=== PATIENT | male | born 1945 | race Caucasian/White ===

== ENCOUNTER 2017-01-17 11:42 | Inpatient (IN) | payer MEDICARE ==
[~2017-01-17] VITALS: Ht 162.6 cm; Wt 60.3 kg
[2017-01-17] MEDS ORDERED: METF500T4 PO (14:58)
[2017-01-17 15:00] VITALS: BP 166/75
[2017-01-17] MEDS ORDERED: CALCIUM CARBONATE 500 MG TAB.CHEW PO PRN (16:45)
[2017-01-17] MEDS ORDERED: KETOROLAC 15 MG/ML VIAL. IV PRN (16:45)
[2017-01-17] MEDS ORDERED: MAG HYDROX/ALUMINUM HYD/SIMETH 30 ML ORAL.SUSP PO PRN (16:45)
[2017-01-17] MEDS ORDERED: oxyCODONE IR 5 MG TABLET PO PRN (16:45)
[2017-01-17] MEDS ORDERED: MAGNESIUM HYDROXIDE 2,400 MG/30 ML ORAL.SUSP. PO PRN (16:45)
[2017-01-17] MEDS ORDERED: ONDANSETRON PF 4 MG/2 ML VIAL. IV PRN (16:45)
[2017-01-17] MEDS ORDERED: BISACODYL 10 MG SUPP.RECT. PR PRN (16:45)
[2017-01-17] MEDS ORDERED: ACETAMINOPHEN 325 MG TABLET. PO PRN (16:45)
[2017-01-17] MEDS ORDERED: MORPHINE SULFATE 2 MG/ML DISP.SYRIN. IV PRN (16:45)
[2017-01-17] MEDS: INSULIN ASPART 300 UNITS/3 ML INSULN.PEN SQ SCH (17:00)
[2017-01-17] MEDS ORDERED: DEXTROSE 50% 25 GM / 50ML DISP.SYRIN. IV PRN (17:00)
--- NOTE | 2017-01-17 17:01 | PDOC1 ---
History and Physical Date of Admission Date of Admission DATE: 01/17/17 TIME: 16:47 Identification/Chief Complaint Chief Complaint muscle pains, transferred from [place] for muscle biopsy and experts opinion Problems: Source Source: Caregiver, Chart review, Patient History of Present Illness History of Present Illness 71 y.o male who works at [employer] (Speaks fluent hungarian), has been admitted for [place] for work up of what sounds like now needing to rule out rheumatologic condition ie polymyositis or statin induced myopathy, His past medical is onDM2 on metfromin and dyslipdiemia started on low campa statin (5 mgs) some 9-12 mos ago,. Then he started noticing leg pains/weakness, the statin was stopped. He had a mechanical fall some 1.5 weeks ago, has some minor R knee/leg abrasion but somehow ended up having to be admitted in [place] and has had a very interesting course there, Sign out c/o Dr. Ingram tel [phone] ext [phone] Lfts elevated inthe 100-300s range (has been climbing up), neg hepatitis, HIV work up, AICHA neg - 01/10 Anti smooth, anti KM neg TSH 6, T3 and T4 normal TRansferrin satn was normal (looking for hemochromatosis) LDH 1300, CPK 29,000 has been getting iVF at 200cc./hr Getting hyperchloremic so NS was shifted to LR, Serum ceruloplasmin neg US of liver was done given elevated Lfts and that was UR, Doppler liver was done to r.o Rickey alarcon that was also neg. PAst medical,. DM on OHA, dyslipdiemia,GERD,. chronic neck pain from cervical disc dse CXR L: showed RUL nodulra opacities. Followed by CT chest and seen by pulmo there, mention of ILD/ and need for OP PFT. CRea 0.6, Chloride 116 Neurology was likewise consulted, mention the need for muscle biopsy and rheum expertise hence the transfer HE described his weakness as unable to push/pull himself up after his fall and is still having difficulty doing that from a squated./seated position Past Medical History Cardiovascular: Hyperlipidemia Musculoskeletal: Osteoarthritis Endocrine: Diabetes Past Surgical History Past Surgical History: No pertinent history Family History Family History: No Significant Social History Smoke: No ALCOHOL: none Drugs: None Current Medications Current Medications Active Scripts Active Reported Metformin Hcl 500 Mg Tablet 500 Mg PO PRN Allergies Allergies: Coded Allergies: No Known Drug Allergies (Unverified , 01/17/17) ROS Review of System as per hPI, all else neg Physical Exam General: Alert, Oriented X3, Cooperative, No acute distress HEENT: Atraumatic, PERRLA Lungs: Clear to auscultation, Normal air movement Heart: S1S2, RRR, no thrills, no rubs, no gallops, no murmurs Cardiovascular: S1, S2 Breasts: Normal Abdomen: Normal bowel sounds, Soft, No tenderness, No hepatosplenomegaly, No masses Extremities: No clubbing, No cyanosis, No edema, Normal pulses, No tenderness/ swelling Skin: No rashes, No breakdown, No significant lesion Neuro: Normal gait, Normal speech, Strength at 5/5 X4 ext, Normal tone, Sensation intact, Cranial nerves 3-12 NL, Reflexes 2+ Psych/Mental Status: Mental status NL, Mood NL Vitals Vitals Vital Signs Date Time Temp Pulse Resp B/P (MAP) Pulse Ox O2 Delivery O2 Flow Rate FiO2 01/17/17 15:00 97.7 72 16 166/75 (105) 98 97.7 VTE Prophylaxis Ordered VTE Prophylaxis Devices: Yes VTE Pharmacological Prophylaxi: Yes Assessment/Plan Assessment/Plan 1. Acute to subacute muscle weakness difftls include statin myopathy, polymyositis? and similar rheum condition 2. DM 2on OHA 3. Dyslipdiemia 4. GERd 5. Eleavted Lfts (100-300s arnge) 6. Rhabdo (CPK 29K) 7. recent mechanical fall, 1.5 weeks ago 8,. Non etoh drinker 9. Elevated aldolase (108) - mild elevation 10. Subclincal hypothy - TSH marginally high 6 and T3 T4 - not enough to explain pt's remarkable labs and sxs 11. Hyperchloremia sec to NS - fast infusion x 1 week Plan: 2MN admit LR IVF Rheum and nephro consult IR consult - transferred for muscle biopsy Get rheum expertise NPO post mN incase IR biopsy Dm diet SSI PT/OT Hold statin BAsic labs - cpk richelle UA - rhabdo Other labs in chart MDM complex Dw pt ANAND VIZCARRA MD January 17, 2017 17:01
[2017-01-17] MEDS: IV RINGERS,LACTATED 1000ML 1,000 ML IV SCH (18:50)
[2017-01-17 19:00] VITALS: BP 147/69
[2017-01-17] MEDS ORDERED: SIMV10TA3 PO (20:24)
[2017-01-17 22:03] LABS: BILIRUBIN,URINE NEGATIVE (NEG); GLUCOSE,URINE NEGATIVE (NEG); NITRITE,URINE NEGATIVE (NEG); PROTEIN,URINE NEGATIVE (NEG-TRACE); UROBILINOGEN,URINE 0.2 mg/dL (0.2 mg/dL)
[2017-01-17 22:16] LABS: BACTERIA,URINE 0 /HPF (0-FEW); RBC,URINE 0 /HPF (0-2); WBC,URINE 0 /HPF (0-4)
[2017-01-17] MEDS: ZOLPIDEM 5 MG TABLET. PO PRN (22:37)
[2017-01-17 23:00] VITALS: BP 144/71
[2017-01-18] MEDS: IV RINGERS,LACTATED 1000ML 1,000 ML IV SCH ×3 (02:20→20:22)
[2017-01-18 05:34] LABS: BASO # 0.1 x10^3/uL (0.0-0.2); BASO % 1 % (0-3); EOS % 3 % (0-3); HEMATOCRIT 36.7 % (39.0-53.0); HEMOGLOBIN 12.1 g/dL (13.0-17.5); LYMPH # 1.7 x10^3/uL (1.0-4.8); LYMPH % 29 % (24-48); MEAN CORPUSCULAR HEMOGLOBIN 31 pg (25-35); MEAN CORPUSCULAR HGB CONC 33 g/dL (31-37); MEAN CORPUSCULAR VOLUME 93 fL (79-100); MONO % 9 % (0-9); NEUT % 57 % (31-73); PLATELET COUNT 214 x10^3/uL (140-400); RED BLOOD COUNT 3.94 x10^6/uL (4.30-5.70); RED CELL DISTRIBUTION WIDTH 14.1 % (11.5-14.5); WHITE BLOOD COUNT 5.7 x10^3/uL (4.0-11.0)
[2017-01-18 05:47] LABS: INR 1.1 (0.8-1.1); PROTHROMBIN TIME PATIENT 13.6 SEC (11.7-14.0)
[2017-01-18 07:13] LABS: CREATINE KINASE 12718 U/L (39-308); MYOGLOBIN 3877 ng/mL (16-96)
[2017-01-18 07:15] VITALS: BP 133/62
[2017-01-18] MEDS: INSULIN ASPART 300 UNITS/3 ML INSULN.PEN SQ SCH ×3 (08:00→17:00)
--- NOTE | 2017-01-18 10:04 | PDOC2 ---
CONSULT Date of Consult Date of Consult DATE: 01/18/17 TIME: 09:59 Reason for Consult Reason for Consult: ^ed Ck with Rhabdomyolysis vs Myositis Referring Physician Referring Physician: Dr Garcia Identification/Chief Complaint Chief Complaint muscle pain and min weakness Problems: Source Source: Chart review, Patient History of Present Illness Reason for Visit: as dictated Past Medical History Cardiovascular: Hyperlipidemia Musculoskeletal: Osteoarthritis Endocrine: Diabetes Past Surgical History Past Surgical History: No pertinent history Family History Family History: No Significant Social History No ALCOHOL: none Drugs: None Current Medications Current Medications Current Medications Ondansetron HCl (Zofran) 4 mg PRN Q6HRS PRN IV NAUSEA/VOMITING; Start 01/17/17 at 16:45 Al Hydroxide/Mg Hydroxide (Mylanta Plus Xs) 30 ml PRN Q3HRS PRN PO HEARTBURN / GAS; Start 01/17/17 at 16:45 Calcium Carbonate/ Glycine (Tums) 500 mg PRN Q3HRS PRN PO UPSET STOMACH; Start 01/17/17 at 16:45 Zolpidem Tartrate (Ambien) 5 mg PRN QHS PRN PO INSOMNIA, MAY REPEAT IN 1HR Last administered on 01/17/17t 22:37; Start 01/17/17 at 16:45 Oxycodone HCl (Roxicodone) 5 mg PRN Q3HRS PRN PO BREAKTHROUGH PAIN; Start at 16:45 Morphine Sulfate 1 mg PRN Q1HR PRN IV PAIN; Start 01/17/17 at 16:45 Ketorolac Tromethamine (Toradol) 15 mg PRN Q6HRS PRN IV PAIN; Start 01/17/17 at 16:45; Stop 01/22/17 at 16:44 Acetaminophen (Tylenol) 650 mg PRN Q6HRS PRN PO Headaches, Temp > 101.5F; Start 01/17/17 at 16:45 Magnesium Hydroxide (Milk Of Magnesia) 2,400 mg PRN Q12HR PRN PO CONSTIPATION; Start 01/17/17 at 16:45 Bisacodyl (Dulcolax Supp) 10 mg PRN DAILY PRN [place] CONSTIPATION; Start 01/17/17 at 16:45 Insulin Aspart (Novolog) 0-7 UNITS TIDWMEALS SQ ; Start 01/17/17 at 17:00 Dextrose (Dextrose 50%-Water Syringe) 12.5 gm PRN Q15MIN PRN IV SEE COMMENTS; Start 01/17/17 at 17:00 Active Scripts Active Reported Simvastatin Unknown Strength Tablet Unknown Dose PO QHS Metformin Hcl 500 Mg Tablet 500 Mg PO PRN Allergies Allergies: Coded Allergies: No Known Drug Allergies (Unverified , 01/17/17) ROS Review of System GEN: + Fevers no Chills EYES: no new Visual Complaints ENT: no EN Drainage no Hearing deficiets CVS: no Orthopnea no CP RESP: no SOB no MARINO GI: no Nausea no Vomiting : no Dysuria no Urgency HEME: no easy bruising no Palp Ly Nodes NEURO no Focal Weakness no Sz PSYCH: no Suicidal Ideation no Depression SKIN: no Rashes ENDO: no Polyuria or Polydipsia no Hot/Cold Intolerance MU SK: Ch neck Arthralgia + gen Myalgia Physical Exam Physical Exam General Appearance: Awake Alert Oriented x 3 In no Distress Eyes: VIsion Unchanged Conjunctiva Normal EN: No EN Drainage Mucous Memb. moist Neck: no JVD no JVP Supple no Thyromegaly CVS: S1 S2 no Murmur No Gallop No Rub no Edema Resp: no Rales no Rhonchi no Acc. Muscle use GI: BAS +ve NO Bruit Non Tender Non Distended : no CVA tenderness; no Suprapubic Tenderness SKIN: no Rashes Breast Exam deferred Mu.Sk: Adequate ROM no Muscle Atrophy Heme: Unable to palpate Obvious LAD no pal p Splenomegaly NEURO: Good Strength and Tone Cranial Nerves II - XII grossly intact Psych: not Depressed no Active hallucination Vital Signs Vital Signs Date Time Temp Pulse Resp B/P (MAP) Pulse Ox O2 Delivery O2 Flow Rate FiO2 01/18/17 07:15 100.4 77 18 133/62 (85) 97 Room Air 100.4 Assessment & Plan ^ed CK - pt is being evaluated for Myositis vs Rhabod - ct IVF for now to prevent DANN. Await creat (has been WNL for now ) Lo grd fever - defr to Dr jackson et timbo Labs Labs Laboratory Tests Test 01/17/17 21:06 01/17/17 21:50 01/18/17 04:55 01/18/17 08:17 Glucose (Fingerstick) 84 mg/dL (70-99) 94 mg/dL (70-99) Urine Collection Type Unknown Urine Color Yellow Urine Clarity Clear Urine pH 8.0 Urine Specific [place] 1.010 Urine Protein Negative mg/dL (NEG-TRACE) Urine Glucose (UA) Negative mg/dL (NEG) Urine Ketones (Stick) Negative mg/dL (NEG) Urine Blood Large (NEG) Urine Nitrite Negative (NEG) Urine Bilirubin Negative (NEG) Urine Urobilinogen Dipstick 0.2 mg/dL (0.2 mg/dL) Urine Leukocyte Esterase Negative (NEG) Urine RBC 0 /HPF (0-2) Urine WBC 0 /HPF (0-4) Urine Bacteria 0 /HPF (0-FEW) White Blood Count 5.7 x10^3/uL (4.0-11.0) Red Blood Count 3.94 x10^6/uL (4.30-5.70) Hemoglobin 12.1 g/dL (13.0-17.5) Hematocrit 36.7 % (39.0-53.0) Mean Corpuscular Volume 93 fL (79-100) Mean Corpuscular Hemoglobin 31 pg (25-35) Mean Corpuscular Hemoglobin Concent 33 g/dL (31-37) Red Cell Distribution Width 14.1 % (11.5-14.5) Platelet Count 214 x10^3/uL (140-400) Neutrophils (%) (Auto) 57 % (31-73) Lymphocytes (%) (Auto) 29 % (24-48) Monocytes (%) (Auto) 9 % (0-9) Eosinophils (%) (Auto) 3 % (0-3) Basophils (%) (Auto) 1 % (0-3) Neutrophils # (Auto) 3.2 x10^3uL (1.8-7.7) Lymphocytes # (Auto) 1.7 x10^3/uL (1.0-4.8) Monocytes # (Auto) 0.5 x10^3/uL (0.0-1.1) Eosinophils # (Auto) 0.2 x10^3/uL (0.0-0.7) Basophils # (Auto) 0.1 x10^3/uL (0.0-0.2) Prothrombin Time 13.6 SEC (11.7-14.0) Prothromb Time International Ratio 1.1 (0.8-1.1) Creatine Kinase 06375 U/L (39-308) Myoglobin 3877 ng/mL (16-96) Laboratory Tests Test 01/17/17 21:06 01/17/17 21:50 01/18/17 04:55 01/18/17 08:17 Glucose (Fingerstick) 84 mg/dL (70-99) 94 mg/dL (70-99) Urine Collection Type Unknown Urine Color Yellow Urine Clarity Clear Urine pH 8.0 Urine Specific [place] 1.010 Urine Protein Negative mg/dL (NEG-TRACE) Urine Glucose (UA) Negative mg/dL (NEG) Urine Ketones (Stick) Negative mg/dL (NEG) Urine Blood Large (NEG) Urine Nitrite Negative (NEG) Urine Bilirubin Negative (NEG) Urine Urobilinogen Dipstick 0.2 mg/dL (0.2 mg/dL) Urine Leukocyte Esterase Negative (NEG) Urine RBC 0 /HPF (0-2) Urine WBC 0 /HPF (0-4) Urine Bacteria 0 /HPF (0-FEW) White Blood Count 5.7 x10^3/uL (4.0-11.0) Red Blood Count 3.94 x10^6/uL (4.30-5.70) Hemoglobin 12.1 g/dL (13.0-17.5) Hematocrit 36.7 % (39.0-53.0) Mean Corpuscular Volume 93 fL (79-100) Mean Corpuscular Hemoglobin 31 pg (25-35) Mean Corpuscular Hemoglobin Concent 33 g/dL (31-37) Red Cell Distribution Width 14.1 % (11.5-14.5) Platelet Count 214 x10^3/uL (140-400) Neutrophils (%) (Auto) 57 % (31-73) Lymphocytes (%) (Auto) 29 % (24-48) Monocytes (%) (Auto) 9 % (0-9) Eosinophils (%) (Auto) 3 % (0-3) Basophils (%) (Auto) 1 % (0-3) Neutrophils # (Auto) 3.2 x10^3uL (1.8-7.7) Lymphocytes # (Auto) 1.7 x10^3/uL (1.0-4.8) Monocytes # (Auto) 0.5 x10^3/uL (0.0-1.1) Eosinophils # (Auto) 0.2 x10^3/uL (0.0-0.7) Basophils # (Auto) 0.1 x10^3/uL (0.0-0.2) Prothrombin Time 13.6 SEC (11.7-14.0) Prothromb Time International Ratio 1.1 (0.8-1.1) Creatine Kinase 47607 U/L (39-308) Myoglobin 3877 ng/mL (16-96) GERRY MUNGUIA MD January 18, 2017 10:04
[2017-01-18 10:40] LABS: FREE T4 1.18 ng/dL (0.76-1.46)
[2017-01-18 10:50] VITALS: BP 145/65
--- NOTE | 2017-01-18 11:21 | PDOC2 ---
GI CONSULT Reason For Consult: Elevated LFTs HPI: HPI: 71 y/o male transferred from [place] w/ rhabdomyolysis vs myositis, muscle biopsy planned for 01/21 and rheum consult requested. Reports ~6 months of weakness, previous fall, and ~8 pound unintentional weight loss. GI asked to see for elevated LFTs. Dr. Garcia's note reviewed; work-up so far includes neg/normal Hep panel, ASMA, AMA, AICHA, LKM, HIV, transferrin, iron, ceruloplasmin, and normal abd US and Doppler. GI-lorenzo has occasional dysphagia and occasional reflux, no abd pain, no n/v, no diarrhea or constipation, no bleeding, no change in appetite. EGD from 12/10/16 reviewed, report suggests esophageal dysmotility/presbyesophagus, hiatal hernia , and gastritis. Empiric esophageal dilation was performed (54Fr). Reports colonoscopy last year was normal. PMH: PMH: DM, HLD, BPH, ED, NNEKA, tonsillectomy FH: Family History: No pertinent hx (denies GI cancers) Social History: Smoke: Quit ALCOHOL: rare Drugs: None ROS: GEN: +fever HEENT: Denies blurred vision, sore throat CV: Denies chest pain RESP: Denies shortness of air, cough GI: Per HPI : Denies hematuria, dysuria ENDO: +weight loss NEURO: Denies confusion, dizziness MSK: +weakness SKIN: Denies jaundice, pruritus Vitals: Vitals: Vital Signs Date Time Temp Pulse Resp B/P (MAP) Pulse Ox O2 Delivery O2 Flow Rate FiO2 01/18/17 07:15 100.4 77 18 133/62 (85) 97 Room Air 100.4 Labs: Labs: Laboratory Tests Test 01/17/17 21:06 01/17/17 21:50 01/18/17 04:55 01/18/17 08:17 Glucose (Fingerstick) 84 mg/dL 94 mg/dL Urine Collection Type Unknown Urine Color Yellow Urine Clarity Clear Urine pH 8.0 Urine Specific [place] 1.010 Urine Protein Negative mg/dL Urine Glucose (UA) Negative mg/dL Urine Ketones (Stick) Negative mg/dL Urine Blood Large Urine Nitrite Negative Urine Bilirubin Negative Urine Urobilinogen Dipstick 0.2 mg/dL Urine Leukocyte Esterase Negative Urine RBC 0 /HPF Urine WBC 0 /HPF Urine Bacteria 0 /HPF White Blood Count 5.7 x10^3/uL Red Blood Count 3.94 x10^6/uL Hemoglobin 12.1 g/dL Hematocrit 36.7 % Mean Corpuscular Volume 93 fL Mean Corpuscular Hemoglobin 31 pg Mean Corpuscular Hemoglobin Concent 33 g/dL Red Cell Distribution Width 14.1 % Platelet Count 214 x10^3/uL Neutrophils (%) (Auto) 57 % Lymphocytes (%) (Auto) 29 % Monocytes (%) (Auto) 9 % Eosinophils (%) (Auto) 3 % Basophils (%) (Auto) 1 % Neutrophils # (Auto) 3.2 x10^3uL Lymphocytes # (Auto) 1.7 x10^3/uL Monocytes # (Auto) 0.5 x10^3/uL Eosinophils # (Auto) 0.2 x10^3/uL Basophils # (Auto) 0.1 x10^3/uL Prothrombin Time 13.6 SEC Prothromb Time International Ratio 1.1 Sodium Level 143 mmol/L Potassium Level 3.4 mmol/L Chloride Level 105 mmol/L Carbon Dioxide Level 31 mmol/L Anion Gap 7 Blood Urea Nitrogen 11 mg/dL Creatinine 0.7 mg/dL Estimated GFR (Cockcroft-Gault) 111.8 BUN/Creatinine Ratio 16 Glucose Level 77 mg/dL Calcium Level 9.0 mg/dL Phosphorus Level 4.9 mg/dL Magnesium Level 1.7 mg/dL Total Bilirubin 0.6 mg/dL Aspartate Amino Transf (AST/SGOT) 220 U/L Alanine Aminotransferase (ALT/SGPT) 360 U/L Alkaline Phosphatase 56 U/L Creatine Kinase 84523 U/L Myoglobin 3877 ng/mL Total Protein 6.3 g/dL Albumin 3.1 g/dL Albumin/Globulin Ratio 1.0 Thyroid Stimulating Hormone (TSH) 6.521 uIU/mL Free Thyroxine 1.18 ng/dL Test 01/18/17 10:50 01/18/17 11:38 01/18/17 12:00 Erythrocyte Sedimentation Rate 30 Glucose (Fingerstick) 90 mg/dL Urine Opiates Screen Neg Urine Methadone Screen Neg Urine Barbiturates Neg Urine Phencyclidine Screen Neg Urine Amphetamine/Methamphetamine Neg Urine Benzodiazepines Screen Neg Urine Cocaine Screen Neg Urine Cannabinoids Screen Neg Urine Ethyl Alcohol Neg Allergies: Coded Allergies: No Known Drug Allergies (Unverified , 01/17/17) Medications: Current Medications Medications (Trade) Dose Ordered Sig/Vanessa Route PRN Reason Start Time Stop Time Status Last Admin Dose Admin Zolpidem Tartrate (Ambien) 5 mg PRN QHS PRN PO INSOMNIA, MAY REPEAT IN 1HR 01/17/17 16:45 01/17/17 22:37 PE: GEN: NAD HEENT: Atraumatic, PERRL LUNGS: CTAB anteriorly HEART: RRR ABD: NABS, S/ND/NT EXTREMITY: No edema SKIN: No rashes, no jaundice NEURO/PSYCH: A & O 3 A/P: A/P: Weakness, rhabdomyolysis Abnormal LFTs -previous workup at [place] unrevealing -- Muscle biopsy Saturday. Will review [place] recs w/ Dr. Finnegan. LARISSA BRUNO January 18, 2017 11:21
[2017-01-18 12:15] LABS: ALBUMIN 3.1 g/dL (3.4-5.0); CREATININE 0.7 mg/dL (0.7-1.3); GFR 111.8; MAGNESIUM 1.7 mg/dL (1.8-2.4); PHOSPHORUS 4.9 mg/dL (2.6-4.7); POTASSIUM 3.4 mmol/L (3.5-5.1); TOTAL BILIRUBIN 0.6 mg/dL (0.2-1.0); TOTAL PROTEIN 6.3 g/dL (6.4-8.2)
[2017-01-18 12:17] LABS: BARBITURATES NEG (NEG); BENZODIAZEPINES NEG (NEG); CANNABINOIDS NEG (NEG); COCAINE NEG (NEG); METHADONE NEG (NEG); OPIATES NEG (NEG); PHENCYCLIDINE NEG (NEG)
--- NOTE | 2017-01-18 12:34 | PDOC2 ---
ROBERT MCCLAIN MERCH[employer]ISING EXECUTION ASSOCIATE 01/18/17 1234: CONSULT Date of Consult Date of Consult DATE: 01/18/17 TIME: 12:27 Reason for Consult Reason for Consult: muscle biopsy Referring Physician Referring Physician: Dr Wolfe Identification/Chief Complaint Chief Complaint muscle pain Source Source: Chart review, Patient History of Present Illness Reason for Visit: 6 months of weakness, previous fall about 1 1/2 ago , muscle pain--from review of record workup at [place]--transferred here for a muscle biopsy and rheumatology consult Per records attempting to rule out rheumatologic condition Past Medical History Cardiovascular: Hyperlipidemia Musculoskeletal: Osteoarthritis Endocrine: Diabetes Past Surgical History Past Surgical History: No pertinent history Family History Family History: No Significant Social History Quit ALCOHOL: rare Drugs: None Current Medications Current Medications Current Medications Ondansetron HCl (Zofran) 4 mg PRN Q6HRS PRN IV NAUSEA/VOMITING; Start 01/17/17 at 16:45 Al Hydroxide/Mg Hydroxide (Mylanta Plus Xs) 30 ml PRN Q3HRS PRN PO HEARTBURN / GAS; Start 01/17/17 at 16:45 Calcium Carbonate/ Glycine (Tums) 500 mg PRN Q3HRS PRN PO UPSET STOMACH; Start 01/17/17 at 16:45 Zolpidem Tartrate (Ambien) 5 mg PRN QHS PRN PO INSOMNIA, MAY REPEAT IN 1HR Last administered on 01/17/17t 22:37; Start 01/17/17 at 16:45 Oxycodone HCl (Roxicodone) 5 mg PRN Q3HRS PRN PO BREAKTHROUGH PAIN; Start at 16:45 Morphine Sulfate 1 mg PRN Q1HR PRN IV PAIN; Start 01/17/17 at 16:45 Ketorolac Tromethamine (Toradol) 15 mg PRN Q6HRS PRN IV PAIN; Start 01/17/17 at 16:45; Stop 01/22/17 at 16:44 Acetaminophen (Tylenol) 650 mg PRN Q6HRS PRN PO Headaches, Temp > 101.5F; Start 01/17/17 at 16:45 Magnesium Hydroxide (Milk Of Magnesia) 2,400 mg PRN Q12HR PRN PO CONSTIPATION; Start 01/17/17 at 16:45 Bisacodyl (Dulcolax Supp) 10 mg PRN DAILY PRN MT CONSTIPATION; Start 01/17/17 at 16:45 Insulin Aspart (Novolog) 0-7 UNITS TIDWMEALS SQ ; Start 01/17/17 at 17:00 Dextrose (Dextrose 50%-Water Syringe) 12.5 gm PRN Q15MIN PRN IV SEE COMMENTS; Start 01/17/17 at 17:00 Active Scripts Active Reported Simvastatin Unknown Strength Tablet Unknown Dose PO QHS Metformin Hcl 500 Mg Tablet 500 Mg PO PRN Allergies Allergies: Coded Allergies: No Known Drug Allergies (Unverified , 01/17/17) ROS General: YES: Other (weight loss+), No: Chills PSYCHOLOGICAL ROS: No: Anxiety, Depression Eyes: No Blurry vision, No Double vision HEENT: No: Heacaches, Sore Throat Hematological and Lymphatic: No: Bleeding Problems, Blood Clots Respiratory: No: Cough, Shortness of breath Cardiovascular: No Chest Pain, No Palpitations Gastrointestinal: No Nausea, No Vomiting Genitourinary: No Dysuria, No Hematuria Musculoskeletal: Yes Muscle Pain, Yes Muscular Weakness Skin: No Pruritus, No Rash Physical Exam General: Alert, Oriented X3, Cooperative, No acute distress HEENT: PERRLA, Mucous membr. moist/pink Lungs: Clear to auscultation, Normal air movement Heart: Regular rate, Normal S1, Normal S2, No murmurs Abdomen: Normal bowel sounds, Soft, No tenderness, No hepatosplenomegaly, No masses Extremities: No clubbing, No cyanosis Skin: No rashes, No breakdown Neuro: Normal gait, Normal speech Psych/Mental Status: Mental status NL, Mood NL MUSCULOSKELETAL: No deformity, No swelling Vitals VITALS Vital Signs Date Time Temp Pulse Resp B/P (MAP) Pulse Ox O2 Delivery O2 Flow Rate FiO2 01/18/17 07:15 100.4 77 18 133/62 (85) 97 Room Air 100.4 Labs Labs Laboratory Tests Test 01/17/17 21:06 01/17/17 21:50 01/18/17 04:55 01/18/17 08:17 Glucose (Fingerstick) 84 mg/dL (70-99) 94 mg/dL (70-99) Urine Collection Type Unknown Urine Color Yellow Urine Clarity Clear Urine pH 8.0 Urine Specific [place] 1.010 Urine Protein Negative mg/dL (NEG-TRACE) Urine Glucose (UA) Negative mg/dL (NEG) Urine Ketones (Stick) Negative mg/dL (NEG) Urine Blood Large (NEG) Urine Nitrite Negative (NEG) Urine Bilirubin Negative (NEG) Urine Urobilinogen Dipstick 0.2 mg/dL (0.2 mg/dL) Urine Leukocyte Esterase Negative (NEG) Urine RBC 0 /HPF (0-2) Urine WBC 0 /HPF (0-4) Urine Bacteria 0 /HPF (0-FEW) White Blood Count 5.7 x10^3/uL (4.0-11.0) Red Blood Count 3.94 x10^6/uL (4.30-5.70) Hemoglobin 12.1 g/dL (13.0-17.5) Hematocrit 36.7 % (39.0-53.0) Mean Corpuscular Volume 93 fL (79-100) Mean Corpuscular Hemoglobin 31 pg (25-35) Mean Corpuscular Hemoglobin Concent 33 g/dL (31-37) Red Cell Distribution Width 14.1 % (11.5-14.5) Platelet Count 214 x10^3/uL (140-400) Neutrophils (%) (Auto) 57 % (31-73) Lymphocytes (%) (Auto) 29 % (24-48) Monocytes (%) (Auto) 9 % (0-9) Eosinophils (%) (Auto) 3 % (0-3) Basophils (%) (Auto) 1 % (0-3) Neutrophils # (Auto) 3.2 x10^3uL (1.8-7.7) Lymphocytes # (Auto) 1.7 x10^3/uL (1.0-4.8) Monocytes # (Auto) 0.5 x10^3/uL (0.0-1.1) Eosinophils # (Auto) 0.2 x10^3/uL (0.0-0.7) Basophils # (Auto) 0.1 x10^3/uL (0.0-0.2) Prothrombin Time 13.6 SEC (11.7-14.0) Prothromb Time International Ratio 1.1 (0.8-1.1) Sodium Level 143 mmol/L (136-145) Potassium Level 3.4 mmol/L (3.5-5.1) Chloride Level 105 mmol/L (98-107) Carbon Dioxide Level 31 mmol/L (21-32) Anion Gap 7 (6-14) Blood Urea Nitrogen 11 mg/dL (8-26) Creatinine 0.7 mg/dL (0.7-1.3) Estimated GFR (Cockcroft-Gault) 111.8 BUN/Creatinine Ratio 16 (6-20) Glucose Level 77 mg/dL (70-99) Calcium Level 9.0 mg/dL (8.5-10.1) Phosphorus Level 4.9 mg/dL (2.6-4.7) Magnesium Level 1.7 mg/dL (1.8-2.4) Total Bilirubin 0.6 mg/dL (0.2-1.0) Aspartate Amino Transf (AST/SGOT) 220 U/L (15-37) Alanine Aminotransferase (ALT/SGPT) 360 U/L (16-63) Alkaline Phosphatase 56 U/L (46-116) Creatine Kinase 12030 U/L (39-308) Myoglobin 3877 ng/mL (16-96) Total Protein 6.3 g/dL (6.4-8.2) Albumin 3.1 g/dL (3.4-5.0) Albumin/Globulin Ratio 1.0 (1.0-1.7) Thyroid Stimulating Hormone (TSH) 6.521 uIU/mL (0.358-3.74) Free Thyroxine 1.18 ng/dL (0.76-1.46) Test 01/18/17 10:50 01/18/17 11:38 01/18/17 12:00 Erythrocyte Sedimentation Rate 30 (0-15) Glucose (Fingerstick) 90 mg/dL (70-99) Urine Opiates Screen Neg (NEG) Urine Methadone Screen Neg (NEG) Urine Barbiturates Neg (NEG) Urine Phencyclidine Screen Neg (NEG) Urine Amphetamine/Methamphetamine Neg (NEG) Urine Benzodiazepines Screen Neg (NEG) Urine Cocaine Screen Neg (NEG) Urine Cannabinoids Screen Neg (NEG) Urine Ethyl Alcohol Neg (NEG) Laboratory Tests Test 01/17/17 21:06 01/17/17 21:50 01/18/17 04:55 01/18/17 08:17 Glucose (Fingerstick) 84 mg/dL (70-99) 94 mg/dL (70-99) Urine Collection Type Unknown Urine Color Yellow Urine Clarity Clear Urine pH 8.0 Urine Specific [place] 1.010 Urine Protein Negative mg/dL (NEG-TRACE) Urine Glucose (UA) Negative mg/dL (NEG) Urine Ketones (Stick) Negative mg/dL (NEG) Urine Blood Large (NEG) Urine Nitrite Negative (NEG) Urine Bilirubin Negative (NEG) Urine Urobilinogen Dipstick 0.2 mg/dL (0.2 mg/dL) Urine Leukocyte Esterase Negative (NEG) Urine RBC 0 /HPF (0-2) Urine WBC 0 /HPF (0-4) Urine Bacteria 0 /HPF (0-FEW) White Blood Count 5.7 x10^3/uL (4.0-11.0) Red Blood Count 3.94 x10^6/uL (4.30-5.70) Hemoglobin 12.1 g/dL (13.0-17.5) Hematocrit 36.7 % (39.0-53.0) Mean Corpuscular Volume 93 fL (79-100) Mean Corpuscular Hemoglobin 31 pg (25-35) Mean Corpuscular Hemoglobin Concent 33 g/dL (31-37) Red Cell Distribution Width 14.1 % (11.5-14.5) Platelet Count 214 x10^3/uL (140-400) Neutrophils (%) (Auto) 57 % (31-73) Lymphocytes (%) (Auto) 29 % (24-48) Monocytes (%) (Auto) 9 % (0-9) Eosinophils (%) (Auto) 3 % (0-3) Basophils (%) (Auto) 1 % (0-3) Neutrophils # (Auto) 3.2 x10^3uL (1.8-7.7) Lymphocytes # (Auto) 1.7 x10^3/uL (1.0-4.8) Monocytes # (Auto) 0.5 x10^3/uL (0.0-1.1) Eosinophils # (Auto) 0.2 x10^3/uL (0.0-0.7) Basophils # (Auto) 0.1 x10^3/uL (0.0-0.2) Prothrombin Time 13.6 SEC (11.7-14.0) Prothromb Time International Ratio 1.1 (0.8-1.1) Sodium Level 143 mmol/L (136-145) Potassium Level 3.4 mmol/L (3.5-5.1) Chloride Level 105 mmol/L (98-107) Carbon Dioxide Level 31 mmol/L (21-32) Anion Gap 7 (6-14) Blood Urea Nitrogen 11 mg/dL (8-26) Creatinine 0.7 mg/dL (0.7-1.3) Estimated GFR (Cockcroft-Gault) 111.8 BUN/Creatinine Ratio 16 (6-20) Glucose Level 77 mg/dL (70-99) Calcium Level 9.0 mg/dL (8.5-10.1) Phosphorus Level 4.9 mg/dL (2.6-4.7) Magnesium Level 1.7 mg/dL (1.8-2.4) Total Bilirubin 0.6 mg/dL (0.2-1.0) Aspartate Amino Transf (AST/SGOT) 220 U/L (15-37) Alanine Aminotransferase (ALT/SGPT) 360 U/L (16-63) Alkaline Phosphatase 56 U/L (46-116) Creatine Kinase 28011 U/L (39-308) Myoglobin 3877 ng/mL (16-96) Total Protein 6.3 g/dL (6.4-8.2) Albumin 3.1 g/dL (3.4-5.0) Albumin/Globulin Ratio 1.0 (1.0-1.7) Thyroid Stimulating Hormone (TSH) 6.521 uIU/mL (0.358-3.74) Free Thyroxine 1.18 ng/dL (0.76-1.46) Test 01/18/17 10:50 01/18/17 11:38 01/18/17 12:00 Erythrocyte Sedimentation Rate 30 (0-15) Glucose (Fingerstick) 90 mg/dL (70-99) Urine Opiates Screen Neg (NEG) Urine Methadone Screen Neg (NEG) Urine Barbiturates Neg (NEG) Urine Phencyclidine Screen Neg (NEG) Urine Amphetamine/Methamphetamine Neg (NEG) Urine Benzodiazepines Screen Neg (NEG) Urine Cocaine Screen Neg (NEG) Urine Cannabinoids Screen Neg (NEG) Urine Ethyl Alcohol Neg (NEG) Images Images muscle weakness, muscle pain DM GERD dyslipidemia Elevated LFTs Rhabdomyolysis consult for muscle biopsy, unfortunately patient eating lunch, will not be able to do today will d/w Dr gupta on timing NAHEED GUPTA MD 01/18/17 1300: CONSULT Allergies Allergies: Coded Allergies: No Known Drug Allergies (Unverified , 01/17/17) Assessment/Plan Assessment/Plan Patient seen and examined. Needs muscle biopsy. Patient has eaten today, and muscle biopsy needs to be sent fresh at time of biopsy so pathology needs to be available. Will plan on biopsy Sunday 01/21. Agree with Maria assessment and plan. ROBERT MCCLAIN APRN January 18, 2017 12:34 NAHEED GUPTA MD January 18, 2017 13:00
--- NOTE | 2017-01-18 12:57 | PDOC ---
PROGRESS NOTES Chief Complaint Chief Complaint 1. 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 and similar rheum condition 2. DM 2on OHA 3. Dyslipdiemia 4. GERd 5. Eleavted Lfts (100-300s arnge) 6. Rhabdo (CPK 29K) 7. recent mechanical fall, 1.5 weeks ago 8,. Non etoh drinker 9. Elevated aldolase (108) - mild elevation 10. Subclincal hypothy - TSH marginally high 6 and T3 T4 - not enough to explain pt's remarkable labs and sxs 11. Hyperchloremia sec to NS - fast infusion x 1 week Plan: 2MN admit LR IVF Rheum consult pending. GI AND nephro consulted sx consulted for muscle bx Dm diet SSI PT/OT Hold statin BAsic labs - cpk richelle UA - rhabdo CK daily waiting for sx for muscle bx, cont IVF, hope dc soon when CK better. likely need start steroid, waiting for rheum consult. History of Present Illness History of Present Illness t 100.4 mild bl proximal muscle weakness, no skin rash good urine output Vitals Vitals Vital Signs Date Time Temp Pulse Resp B/P (MAP) Pulse Ox O2 Delivery O2 Flow Rate FiO2 01/18/17 08:00 Room Air 01/18/17 07:15 100.4 77 18 133/62 (85) 97 100.4 Physical Exam Physical Exam mild bl proximal ext weakness General: Alert, Oriented X3, Cooperative, No acute distress Heart: Regular rate, Normal S1, Normal S2, No murmurs Abdomen: Normal bowel sounds, Soft, No tenderness, No hepatosplenomegaly, No masses Extremities: No clubbing, No cyanosis Skin: No rashes, No breakdown Labs LABS Laboratory Tests Test 01/17/17 21:06 01/17/17 21:50 01/18/17 04:55 01/18/17 08:17 Glucose (Fingerstick) 84 mg/dL (70-99) 94 mg/dL (70-99) Urine Collection Type Unknown Urine Color Yellow Urine Clarity Clear Urine pH 8.0 Urine Specific [place] 1.010 Urine Protein Negative mg/dL (NEG-TRACE) Urine Glucose (UA) Negative mg/dL (NEG) Urine Ketones (Stick) Negative mg/dL (NEG) Urine Blood Large (NEG) Urine Nitrite Negative (NEG) Urine Bilirubin Negative (NEG) Urine Urobilinogen Dipstick 0.2 mg/dL (0.2 mg/dL) Urine Leukocyte Esterase Negative (NEG) Urine RBC 0 /HPF (0-2) Urine WBC 0 /HPF (0-4) Urine Bacteria 0 /HPF (0-FEW) White Blood Count 5.7 x10^3/uL (4.0-11.0) Red Blood Count 3.94 x10^6/uL (4.30-5.70) Hemoglobin 12.1 g/dL (13.0-17.5) Hematocrit 36.7 % (39.0-53.0) Mean Corpuscular Volume 93 fL (79-100) Mean Corpuscular Hemoglobin 31 pg (25-35) Mean Corpuscular Hemoglobin Concent 33 g/dL (31-37) Red Cell Distribution Width 14.1 % (11.5-14.5) Platelet Count 214 x10^3/uL (140-400) Neutrophils (%) (Auto) 57 % (31-73) Lymphocytes (%) (Auto) 29 % (24-48) Monocytes (%) (Auto) 9 % (0-9) Eosinophils (%) (Auto) 3 % (0-3) Basophils (%) (Auto) 1 % (0-3) Neutrophils # (Auto) 3.2 x10^3uL (1.8-7.7) Lymphocytes # (Auto) 1.7 x10^3/uL (1.0-4.8) Monocytes # (Auto) 0.5 x10^3/uL (0.0-1.1) Eosinophils # (Auto) 0.2 x10^3/uL (0.0-0.7) Basophils # (Auto) 0.1 x10^3/uL (0.0-0.2) Prothrombin Time 13.6 SEC (11.7-14.0) Prothromb Time International Ratio 1.1 (0.8-1.1) Sodium Level 143 mmol/L (136-145) Potassium Level 3.4 mmol/L (3.5-5.1) Chloride Level 105 mmol/L (98-107) Carbon Dioxide Level 31 mmol/L (21-32) Anion Gap 7 (6-14) Blood Urea Nitrogen 11 mg/dL (8-26) Creatinine 0.7 mg/dL (0.7-1.3) Estimated GFR (Cockcroft-Gault) 111.8 BUN/Creatinine Ratio 16 (6-20) Glucose Level 77 mg/dL (70-99) Calcium Level 9.0 mg/dL (8.5-10.1) Phosphorus Level 4.9 mg/dL (2.6-4.7) Magnesium Level 1.7 mg/dL (1.8-2.4) Total Bilirubin 0.6 mg/dL (0.2-1.0) Aspartate Amino Transf (AST/SGOT) 220 U/L (15-37) Alanine Aminotransferase (ALT/SGPT) 360 U/L (16-63) Alkaline Phosphatase 56 U/L (46-116) Creatine Kinase 93384 U/L (39-308) Myoglobin 3877 ng/mL (16-96) Total Protein 6.3 g/dL (6.4-8.2) Albumin 3.1 g/dL (3.4-5.0) Albumin/Globulin Ratio 1.0 (1.0-1.7) Thyroid Stimulating Hormone (TSH) 6.521 uIU/mL (0.358-3.74) Free Thyroxine 1.18 ng/dL (0.76-1.46) Test 01/18/17 10:50 01/18/17 11:38 01/18/17 12:00 Erythrocyte Sedimentation Rate 30 (0-15) Glucose (Fingerstick) 90 mg/dL (70-99) Urine Opiates Screen Neg (NEG) Urine Methadone Screen Neg (NEG) Urine Barbiturates Neg (NEG) Urine Phencyclidine Screen Neg (NEG) Urine Amphetamine/Methamphetamine Neg (NEG) Urine Benzodiazepines Screen Neg (NEG) Urine Cocaine Screen Neg (NEG) Urine Cannabinoids Screen Neg (NEG) Urine Ethyl Alcohol Neg (NEG) Review of Systems Review of Systems no chills, sob or chest pain Comment Review of Relevant I have reviewed the following items kathie (where applicable) has been applied. Labs Laboratory Tests Test 01/17/17 21:06 01/17/17 21:50 01/18/17 04:55 01/18/17 08:17 Glucose (Fingerstick) 84 mg/dL (70-99) 94 mg/dL (70-99) Urine Collection Type Unknown Urine Color Yellow Urine Clarity Clear Urine pH 8.0 Urine Specific [place] 1.010 Urine Protein Negative mg/dL (NEG-TRACE) Urine Glucose (UA) Negative mg/dL (NEG) Urine Ketones (Stick) Negative mg/dL (NEG) Urine Blood Large (NEG) Urine Nitrite Negative (NEG) Urine Bilirubin Negative (NEG) Urine Urobilinogen Dipstick 0.2 mg/dL (0.2 mg/dL) Urine Leukocyte Esterase Negative (NEG) Urine RBC 0 /HPF (0-2) Urine WBC 0 /HPF (0-4) Urine Bacteria 0 /HPF (0-FEW) White Blood Count 5.7 x10^3/uL (4.0-11.0) Red Blood Count 3.94 x10^6/uL (4.30-5.70) Hemoglobin 12.1 g/dL (13.0-17.5) Hematocrit 36.7 % (39.0-53.0) Mean Corpuscular Volume 93 fL (79-100) Mean Corpuscular Hemoglobin 31 pg (25-35) Mean Corpuscular Hemoglobin Concent 33 g/dL (31-37) Red Cell Distribution Width 14.1 % (11.5-14.5) Platelet Count 214 x10^3/uL (140-400) Neutrophils (%) (Auto) 57 % (31-73) Lymphocytes (%) (Auto) 29 % (24-48) Monocytes (%) (Auto) 9 % (0-9) Eosinophils (%) (Auto) 3 % (0-3) Basophils (%) (Auto) 1 % (0-3) Neutrophils # (Auto) 3.2 x10^3uL (1.8-7.7) Lymphocytes # (Auto) 1.7 x10^3/uL (1.0-4.8) Monocytes # (Auto) 0.5 x10^3/uL (0.0-1.1) Eosinophils # (Auto) 0.2 x10^3/uL (0.0-0.7) Basophils # (Auto) 0.1 x10^3/uL (0.0-0.2) Prothrombin Time 13.6 SEC (11.7-14.0) Prothromb Time International Ratio 1.1 (0.8-1.1) Sodium Level 143 mmol/L (136-145) Potassium Level 3.4 mmol/L (3.5-5.1) Chloride Level 105 mmol/L (98-107) Carbon Dioxide Level 31 mmol/L (21-32) Anion Gap 7 (6-14) Blood Urea Nitrogen 11 mg/dL (8-26) Creatinine 0.7 mg/dL (0.7-1.3) Estimated GFR (Cockcroft-Gault) 111.8 BUN/Creatinine Ratio 16 (6-20) Glucose Level 77 mg/dL (70-99) Calcium Level 9.0 mg/dL (8.5-10.1) Phosphorus Level 4.9 mg/dL (2.6-4.7) Magnesium Level 1.7 mg/dL (1.8-2.4) Total Bilirubin 0.6 mg/dL (0.2-1.0) Aspartate Amino Transf (AST/SGOT) 220 U/L (15-37) Alanine Aminotransferase (ALT/SGPT) 360 U/L (16-63) Alkaline Phosphatase 56 U/L (46-116) Creatine Kinase 91596 U/L (39-308) Myoglobin 3877 ng/mL (16-96) Total Protein 6.3 g/dL (6.4-8.2) Albumin 3.1 g/dL (3.4-5.0) Albumin/Globulin Ratio 1.0 (1.0-1.7) Thyroid Stimulating Hormone (TSH) 6.521 uIU/mL (0.358-3.74) Free Thyroxine 1.18 ng/dL (0.76-1.46) Test 01/18/17 10:50 01/18/17 11:38 01/18/17 12:00 Erythrocyte Sedimentation Rate 30 (0-15) Glucose (Fingerstick) 90 mg/dL (70-99) Urine Opiates Screen Neg (NEG) Urine Methadone Screen Neg (NEG) Urine Barbiturates Neg (NEG) Urine Phencyclidine Screen Neg (NEG) Urine Amphetamine/Methamphetamine Neg (NEG) Urine Benzodiazepines Screen Neg (NEG) Urine Cocaine Screen Neg (NEG) Urine Cannabinoids Screen Neg (NEG) Urine Ethyl Alcohol Neg (NEG) Laboratory Tests Test 01/17/17 21:06 01/17/17 21:50 01/18/17 04:55 01/18/17 08:17 Glucose (Fingerstick) 84 mg/dL (70-99) 94 mg/dL (70-99) Urine Collection Type Unknown Urine Color Yellow Urine Clarity Clear Urine pH 8.0 Urine Specific [place] 1.010 Urine Protein Negative mg/dL (NEG-TRACE) Urine Glucose (UA) Negative mg/dL (NEG) Urine Ketones (Stick) Negative mg/dL (NEG) Urine Blood Large (NEG) Urine Nitrite Negative (NEG) Urine Bilirubin Negative (NEG) Urine Urobilinogen Dipstick 0.2 mg/dL (0.2 mg/dL) Urine Leukocyte Esterase Negative (NEG) Urine RBC 0 /HPF (0-2) Urine WBC 0 /HPF (0-4) Urine Bacteria 0 /HPF (0-FEW) White Blood Count 5.7 x10^3/uL (4.0-11.0) Red Blood Count 3.94 x10^6/uL (4.30-5.70) Hemoglobin 12.1 g/dL (13.0-17.5) Hematocrit 36.7 % (39.0-53.0) Mean Corpuscular Volume 93 fL (79-100) Mean Corpuscular Hemoglobin 31 pg (25-35) Mean Corpuscular Hemoglobin Concent 33 g/dL (31-37) Red Cell Distribution Width 14.1 % (11.5-14.5) Platelet Count 214 x10^3/uL (140-400) Neutrophils (%) (Auto) 57 % (31-73) Lymphocytes (%) (Auto) 29 % (24-48) Monocytes (%) (Auto) 9 % (0-9) Eosinophils (%) (Auto) 3 % (0-3) Basophils (%) (Auto) 1 % (0-3) Neutrophils # (Auto) 3.2 x10^3uL (1.8-7.7) Lymphocytes # (Auto) 1.7 x10^3/uL (1.0-4.8) Monocytes # (Auto) 0.5 x10^3/uL (0.0-1.1) Eosinophils # (Auto) 0.2 x10^3/uL (0.0-0.7) Basophils # (Auto) 0.1 x10^3/uL (0.0-0.2) Prothrombin Time 13.6 SEC (11.7-14.0) Prothromb Time International Ratio 1.1 (0.8-1.1) Sodium Level 143 mmol/L (136-145) Potassium Level 3.4 mmol/L (3.5-5.1) Chloride Level 105 mmol/L (98-107) Carbon Dioxide Level 31 mmol/L (21-32) Anion Gap 7 (6-14) Blood Urea Nitrogen 11 mg/dL (8-26) Creatinine 0.7 mg/dL (0.7-1.3) Estimated GFR (Cockcroft-Gault) 111.8 BUN/Creatinine Ratio 16 (6-20) Glucose Level 77 mg/dL (70-99) Calcium Level 9.0 mg/dL (8.5-10.1) Phosphorus Level 4.9 mg/dL (2.6-4.7) Magnesium Level 1.7 mg/dL (1.8-2.4) Total Bilirubin 0.6 mg/dL (0.2-1.0) Aspartate Amino Transf (AST/SGOT) 220 U/L (15-37) Alanine Aminotransferase (ALT/SGPT) 360 U/L (16-63) Alkaline Phosphatase 56 U/L (46-116) Creatine Kinase 90950 U/L (39-308) Myoglobin 3877 ng/mL (16-96) Total Protein 6.3 g/dL (6.4-8.2) Albumin 3.1 g/dL (3.4-5.0) Albumin/Globulin Ratio 1.0 (1.0-1.7) Thyroid Stimulating Hormone (TSH) 6.521 uIU/mL (0.358-3.74) Free Thyroxine 1.18 ng/dL (0.76-1.46) Test 01/18/17 10:50 01/18/17 11:38 01/18/17 12:00 Erythrocyte Sedimentation Rate 30 (0-15) Glucose (Fingerstick) 90 mg/dL (70-99) Urine Opiates Screen Neg (NEG) Urine Methadone Screen Neg (NEG) Urine Barbiturates Neg (NEG) Urine Phencyclidine Screen Neg (NEG) Urine Amphetamine/Methamphetamine Neg (NEG) Urine Benzodiazepines Screen Neg (NEG) Urine Cocaine Screen Neg (NEG) Urine Cannabinoids Screen Neg (NEG) Urine Ethyl Alcohol Neg (NEG) Medications Current Medications Ondansetron HCl (Zofran) 4 mg PRN Q6HRS PRN IV NAUSEA/VOMITING; Start 01/17/17 at 16:45 Al Hydroxide/Mg Hydroxide (Mylanta Plus Xs) 30 ml PRN Q3HRS PRN PO HEARTBURN / GAS; Start 01/17/17 at 16:45 Calcium Carbonate/ Glycine (Tums) 500 mg PRN Q3HRS PRN PO UPSET STOMACH; Start 01/17/17 at 16:45 Zolpidem Tartrate (Ambien) 5 mg PRN QHS PRN PO INSOMNIA, MAY REPEAT IN 1HR Last administered on 01/17/17t 22:37; Start 01/17/17 at 16:45 Oxycodone HCl (Roxicodone) 5 mg PRN Q3HRS PRN PO BREAKTHROUGH PAIN; Start at 16:45 Morphine Sulfate 1 mg PRN Q1HR PRN IV PAIN; Start 01/17/17 at 16:45 Ketorolac Tromethamine (Toradol) 15 mg PRN Q6HRS PRN IV PAIN; Start 01/17/17 at 16:45; Stop 01/22/17 at 16:44 Acetaminophen (Tylenol) 650 mg PRN Q6HRS PRN PO Headaches, Temp > 101.5F; Start 01/17/17 at 16:45 Magnesium Hydroxide (Milk Of Magnesia) 2,400 mg PRN Q12HR PRN PO CONSTIPATION; Start 01/17/17 at 16:45 Bisacodyl (Dulcolax Supp) 10 mg PRN DAILY PRN [place] CONSTIPATION; Start 01/17/17 at 16:45 Insulin Aspart (Novolog) 0-7 UNITS TIDWMEALS SQ ; Start 01/17/17 at 17:00 Dextrose (Dextrose 50%-Water Syringe) 12.5 gm PRN Q15MIN PRN IV SEE COMMENTS; Start 01/17/17 at 17:00 Active Scripts Active Reported Simvastatin Unknown Strength Tablet Unknown Dose PO QHS Metformin Hcl 500 Mg Tablet 500 Mg PO PRN Vitals/I & O Vital Sign - Last 24 Hours 01/17/17 01/17/17 01/17/17 01/17/17 14:00 15:00 19:00 20:00 Temp 97.7 98.2 97.7 98.2 Pulse 72 69 Resp 16 20 B/P (MAP) 166/75 (105) 147/69 (95) Pulse Ox 98 98 O2 Delivery Room Air Room Air Room Air 01/17/17 01/18/17 01/18/17 23:00 07:15 08:00 Temp 97.9 100.4 97.9 100.4 Pulse 71 77 Resp 20 18 B/P (MAP) 144/71 (95) 133/62 (85) Pulse Ox 99 97 O2 Delivery Room Air Room Air Room Air Intake and Output 01/17/17 01/17/17 01/18/17 15:00 23:00 07:00 Intake Total 1230 ml 300 ml Output Total 450 ml 700 ml Balance 780 ml -400 ml MARY BHAT MD January 18, 2017 12:57
[2017-01-18] MEDS ORDERED: POTASSIUM CHLORIDE 20 MEQ TABLET.ER. PO ONE (14:30)
[2017-01-18] MEDS ORDERED: MAGNESIUM SULFATE 2GM 50 ML IV ONE (14:30)
[2017-01-18 15:05] VITALS: BP 130/53
[2017-01-18 19:00] VITALS: BP 146/76
[2017-01-18] MEDS: ZOLPIDEM 5 MG TABLET. PO PRN (22:33)
[2017-01-18 23:00] VITALS: BP 132/74
--- NOTE | 2017-01-19 01:16 | CONS ---
DATE OF CONSULTATION: PRIMARY PHYSICIAN: Dr. Garcia. REASON FOR CONSULTATION: Elevated CPK with suspected rhabdomyolysis versus myositis. HISTORY OF PRESENT ILLNESS: The patient is a pleasant 71-year-old gentleman who was [place]. He apparently works at ____ and claims that he has been having gradual weakness in his muscle for about a year. He stopped his statin about a month or two ago. He is known to have underlying diabetes. He did sustain a fall about 3 weeks ago where he missed a step. He claims he got up right away. He claims he just had skin bruises from that. He presented to the [facility] and was noted to have CPKs in the 25,000 range. He continues to have good muscle strength overall. He is transferred here to rule out polymyositis with possible muscle biopsy. His antismooth muscle antibody was negative. HIV was negative. AICHA is negative. His LFTs were elevated. Also with IV fluids his CK is now down to 12,000 to 13,000. The patient denies use of recent allergy medications. 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 Osteoarthritis. FAMILY HISTORY: Negative for known kidney problem. SOCIAL HISTORY: Lives by himself. Nonsmoker, nondrinker, rare alcohol use. He denies drug use. Denies supplements use on the outside. Denies vigorous exercise, etc. at this time. For rest of the details, see electronic records. GERRY MUNGUIA MD DR: ANANT/renae JOB#: [id number] / [id number]
[2017-01-19] MEDS: IV RINGERS,LACTATED 1000ML 1,000 ML IV SCH ×4 (04:44→20:00)
[2017-01-19 05:36] LABS: CALCIUM 8.7 mg/dL (8.5-10.1); CREATININE 0.7 mg/dL (0.7-1.3); GFR 111.8; PHOSPHORUS 4.3 mg/dL (2.6-4.7); POTASSIUM 3.9 mmol/L (3.5-5.1)
[2017-01-19] MEDS: PANTOPRAZOLE 40 MG TABLET.DR. PO SCH (06:14)
[2017-01-19 07:00] VITALS: BP 116/64
[2017-01-19] MEDS: INSULIN ASPART 300 UNITS/3 ML INSULN.PEN SQ SCH ×3 (08:00→16:53)
--- NOTE | 2017-01-19 09:36 | PDOC ---
PROGRESS NOTES Chief Complaint Chief Complaint 1. 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 and similar rheum condition 2. DM 2on OHA 3. Dyslipdiemia 4. GERd 5. Eleavted Lfts (100-300s arnge) 6. Rhabdo (CPK 29K) 7. recent mechanical fall, 1.5 weeks ago 8,. Non etoh drinker 9. Elevated aldolase (108) - mild elevation 10. Subclincal hypothy - TSH marginally high 6 and T3 T4 - not enough to explain pt's remarkable labs and sxs 11. Hyperchloremia sec to NS - fast infusion x 1 week History of Present Illness History of Present Illness mild bl proximal muscle weakness, no skin rash good urine output Off IVF, got 5 bags of LR CPK better 12K from 29 K Planned for muscle biopsy by GS on saturday Rheum consult hopefully to be done on saturday PLAn: Muscle biopsy on Saturday by GS Ff up rheum consult on saturday CPK daily ordered by renal Vitals Vitals Vital Signs Date Time Temp Pulse Resp B/P (MAP) Pulse Ox O2 Delivery O2 Flow Rate FiO2 01/19/17 07:00 97.7 71 18 116/64 (81) 98 Room Air 97.7 Physical Exam Physical Exam mild bl proximal ext weakness General: Alert, Oriented X3, Cooperative, No acute distress Heart: Regular rate, Normal S1, Normal S2, No murmurs Abdomen: Normal bowel sounds, Soft, No tenderness, No hepatosplenomegaly, No masses Extremities: No clubbing, No cyanosis Skin: No rashes, No breakdown Labs LABS Laboratory Tests Test 01/18/17 10:50 01/18/17 11:38 01/18/17 12:00 01/18/17 16:35 Erythrocyte Sedimentation Rate 30 (0-15) Glucose (Fingerstick) 90 mg/dL (70-99) 75 mg/dL (70-99) Urine Opiates Screen Neg (NEG) Urine Methadone Screen Neg (NEG) Urine Barbiturates Neg (NEG) Urine Phencyclidine Screen Neg (NEG) Urine Amphetamine/Methamphetamine Neg (NEG) Urine Benzodiazepines Screen Neg (NEG) Urine Cocaine Screen Neg (NEG) Urine Cannabinoids Screen Neg (NEG) Urine Ethyl Alcohol Neg (NEG) Test 01/19/17 04:40 01/19/17 07:38 Sodium Level 141 mmol/L (136-145) Potassium Level 3.9 mmol/L (3.5-5.1) Chloride Level 107 mmol/L (98-107) Carbon Dioxide Level 30 mmol/L (21-32) Anion Gap 4 (6-14) Blood Urea Nitrogen 12 mg/dL (8-26) Creatinine 0.7 mg/dL (0.7-1.3) Estimated GFR (Cockcroft-Gault) 111.8 Glucose Level 90 mg/dL (70-99) Calcium Level 8.7 mg/dL (8.5-10.1) Phosphorus Level 4.3 mg/dL (2.6-4.7) Creatine Kinase 20112 U/L (39-308) Albumin 3.0 g/dL (3.4-5.0) Glucose (Fingerstick) 98 mg/dL (70-99) Review of Systems Review of Systems mild bilateral prox muscle weakness, all else is neg Comment Review of Relevant I have reviewed the following items kathie (where applicable) has been applied. Labs Laboratory Tests Test 01/17/17 21:06 01/17/17 21:50 01/18/17 04:55 01/18/17 08:17 Glucose (Fingerstick) 84 mg/dL (70-99) 94 mg/dL (70-99) Urine Collection Type Unknown Urine Color Yellow Urine Clarity Clear Urine pH 8.0 Urine Specific [place] 1.010 Urine Protein Negative mg/dL (NEG-TRACE) Urine Glucose (UA) Negative mg/dL (NEG) Urine Ketones (Stick) Negative mg/dL (NEG) Urine Blood Large (NEG) Urine Nitrite Negative (NEG) Urine Bilirubin Negative (NEG) Urine Urobilinogen Dipstick 0.2 mg/dL (0.2 mg/dL) Urine Leukocyte Esterase Negative (NEG) Urine RBC 0 /HPF (0-2) Urine WBC 0 /HPF (0-4) Urine Bacteria 0 /HPF (0-FEW) White Blood Count 5.7 x10^3/uL (4.0-11.0) Red Blood Count 3.94 x10^6/uL (4.30-5.70) Hemoglobin 12.1 g/dL (13.0-17.5) Hematocrit 36.7 % (39.0-53.0) Mean Corpuscular Volume 93 fL (79-100) Mean Corpuscular Hemoglobin 31 pg (25-35) Mean Corpuscular Hemoglobin Concent 33 g/dL (31-37) Red Cell Distribution Width 14.1 % (11.5-14.5) Platelet Count 214 x10^3/uL (140-400) Neutrophils (%) (Auto) 57 % (31-73) Lymphocytes (%) (Auto) 29 % (24-48) Monocytes (%) (Auto) 9 % (0-9) Eosinophils (%) (Auto) 3 % (0-3) Basophils (%) (Auto) 1 % (0-3) Neutrophils # (Auto) 3.2 x10^3uL (1.8-7.7) Lymphocytes # (Auto) 1.7 x10^3/uL (1.0-4.8) Monocytes # (Auto) 0.5 x10^3/uL (0.0-1.1) Eosinophils # (Auto) 0.2 x10^3/uL (0.0-0.7) Basophils # (Auto) 0.1 x10^3/uL (0.0-0.2) Prothrombin Time 13.6 SEC (11.7-14.0) Prothromb Time International Ratio 1.1 (0.8-1.1) Sodium Level 143 mmol/L (136-145) Potassium Level 3.4 mmol/L (3.5-5.1) Chloride Level 105 mmol/L (98-107) Carbon Dioxide Level 31 mmol/L (21-32) Anion Gap 7 (6-14) Blood Urea Nitrogen 11 mg/dL (8-26) Creatinine 0.7 mg/dL (0.7-1.3) Estimated GFR (Cockcroft-Gault) 111.8 BUN/Creatinine Ratio 16 (6-20) Glucose Level 77 mg/dL (70-99) Calcium Level 9.0 mg/dL (8.5-10.1) Phosphorus Level 4.9 mg/dL (2.6-4.7) Magnesium Level 1.7 mg/dL (1.8-2.4) Total Bilirubin 0.6 mg/dL (0.2-1.0) Aspartate Amino Transf (AST/SGOT) 220 U/L (15-37) Alanine Aminotransferase (ALT/SGPT) 360 U/L (16-63) Alkaline Phosphatase 56 U/L (46-116) Creatine Kinase 48582 U/L (39-308) Myoglobin 3877 ng/mL (16-96) Total Protein 6.3 g/dL (6.4-8.2) Albumin 3.1 g/dL (3.4-5.0) Albumin/Globulin Ratio 1.0 (1.0-1.7) Thyroid Stimulating Hormone (TSH) 6.521 uIU/mL (0.358-3.74) Free Thyroxine 1.18 ng/dL (0.76-1.46) Test 01/18/17 10:50 01/18/17 11:38 01/18/17 12:00 01/18/17 16:35 Erythrocyte Sedimentation Rate 30 (0-15) Glucose (Fingerstick) 90 mg/dL (70-99) 75 mg/dL (70-99) Urine Opiates Screen Neg (NEG) Urine Methadone Screen Neg (NEG) Urine Barbiturates Neg (NEG) Urine Phencyclidine Screen Neg (NEG) Urine Amphetamine/Methamphetamine Neg (NEG) Urine Benzodiazepines Screen Neg (NEG) Urine Cocaine Screen Neg (NEG) Urine Cannabinoids Screen Neg (NEG) Urine Ethyl Alcohol Neg (NEG) Test 01/19/17 04:40 01/19/17 07:38 Sodium Level 141 mmol/L (136-145) Potassium Level 3.9 mmol/L (3.5-5.1) Chloride Level 107 mmol/L (98-107) Carbon Dioxide Level 30 mmol/L (21-32) Anion Gap 4 (6-14) Blood Urea Nitrogen 12 mg/dL (8-26) Creatinine 0.7 mg/dL (0.7-1.3) Estimated GFR (Cockcroft-Gault) 111.8 Glucose Level 90 mg/dL (70-99) Calcium Level 8.7 mg/dL (8.5-10.1) Phosphorus Level 4.3 mg/dL (2.6-4.7) Creatine Kinase 11795 U/L (39-308) Albumin 3.0 g/dL (3.4-5.0) Glucose (Fingerstick) 98 mg/dL (70-99) Laboratory Tests Test 01/18/17 10:50 01/18/17 11:38 01/18/17 12:00 01/18/17 16:35 Erythrocyte Sedimentation Rate 30 (0-15) Glucose (Fingerstick) 90 mg/dL (70-99) 75 mg/dL (70-99) Urine Opiates Screen Neg (NEG) Urine Methadone Screen Neg (NEG) Urine Barbiturates Neg (NEG) Urine Phencyclidine Screen Neg (NEG) Urine Amphetamine/Methamphetamine Neg (NEG) Urine Benzodiazepines Screen Neg (NEG) Urine Cocaine Screen Neg (NEG) Urine Cannabinoids Screen Neg (NEG) Urine Ethyl Alcohol Neg (NEG) Test 01/19/17 04:40 01/19/17 07:38 Sodium Level 141 mmol/L (136-145) Potassium Level 3.9 mmol/L (3.5-5.1) Chloride Level 107 mmol/L (98-107) Carbon Dioxide Level 30 mmol/L (21-32) Anion Gap 4 (6-14) Blood Urea Nitrogen 12 mg/dL (8-26) Creatinine 0.7 mg/dL (0.7-1.3) Estimated GFR (Cockcroft-Gault) 111.8 Glucose Level 90 mg/dL (70-99) Calcium Level 8.7 mg/dL (8.5-10.1) Phosphorus Level 4.3 mg/dL (2.6-4.7) Creatine Kinase 14592 U/L (39-308) Albumin 3.0 g/dL (3.4-5.0) Glucose (Fingerstick) 98 mg/dL (70-99) Medications Current Medications Ondansetron HCl (Zofran) 4 mg PRN Q6HRS PRN IV NAUSEA/VOMITING; Start 01/17/17 at 16:45 Al Hydroxide/Mg Hydroxide (Mylanta Plus Xs) 30 ml PRN Q3HRS PRN PO HEARTBURN / GAS; Start 01/17/17 at 16:45 Calcium Carbonate/ Glycine (Tums) 500 mg PRN Q3HRS PRN PO UPSET STOMACH; Start 01/17/17 at 16:45 Zolpidem Tartrate (Ambien) 5 mg PRN QHS PRN PO INSOMNIA, MAY REPEAT IN 1HR Last administered on 01/18/17t 22:33; Start 01/17/17 at 16:45 Oxycodone HCl (Roxicodone) 5 mg PRN Q3HRS PRN PO BREAKTHROUGH PAIN; Start at 16:45 Morphine Sulfate 1 mg PRN Q1HR PRN IV PAIN; Start 01/17/17 at 16:45 Ketorolac Tromethamine (Toradol) 15 mg PRN Q6HRS PRN IV PAIN; Start 01/17/17 at 16:45; Stop 01/22/17 at 16:44 Acetaminophen (Tylenol) 650 mg PRN Q6HRS PRN PO Headaches, Temp > 101.5F Last administered on 01/18/17 15:43; Start 01/17/17 at 16:45 Magnesium Hydroxide (Milk Of Magnesia) 2,400 mg PRN Q12HR PRN PO CONSTIPATION; Start 01/17/17 at 16:45 Bisacodyl (Dulcolax Supp) 10 mg PRN DAILY PRN [place] CONSTIPATION; Start 01/17/17 at 16:45 Insulin Aspart (Novolog) 0-7 UNITS TIDWMEALS SQ ; Start 01/17/17 at 17:00 Dextrose (Dextrose 50%-Water Syringe) 12.5 gm PRN Q15MIN PRN IV SEE COMMENTS; Start 01/17/17 at 17:00 Ringer's Solution 1,000 ml @ 150 mls/hr Q6H40M IV Last administered on 04:44; Start 01/17/17 at 17:30 Pantoprazole Sodium (Protonix) 40 mg DAILYAC PO Last administered on 01/19/17 06:14; Start 01/19/17 at 07:30 Magnesium Sulfate/ Dextrose 50 ml @ 25 mls/hr 1X ONCE IV Last administered on 01/18/17 15:28; Start 01/18/17 at 14:30; Stop 01/18/17 at 16:29; Status DC Potassium Chloride (Klor-Con) 40 meq 1X ONCE PO Last administered on 01/18/17 15:27; Start 01/18/17 at 14:30; Stop 01/18/17 at 14:31; Status DC Active Scripts Active Reported Simvastatin Unknown Strength Tablet Unknown Dose PO QHS Metformin Hcl 500 Mg Tablet 500 Mg PO PRN Vitals/I & O Vital Sign - Last 24 Hours 01/18/17 01/18/17 01/18/17 01/18/17 10:50 15:05 19:00 20:00 Temp 100.0 100.6 97.3 100.0 100.6 97.3 Pulse 73 69 78 Resp 18 18 18 B/P (MAP) 145/65 (91) 130/53 (78) 146/76 (99) Pulse Ox 98 97 98 O2 Delivery Room Air Room Air Room Air Room Air 01/18/17 01/19/17 23:00 07:00 Temp 97.5 97.7 97.5 97.7 Pulse 69 71 Resp 18 18 B/P (MAP) 132/74 (93) 116/64 (81) Pulse Ox 99 98 O2 Delivery Room Air Room Air Intake and Output 01/18/17 01/18/17 01/19/17 15:00 23:00 07:00 Intake Total 180 ml 1140 ml 960 ml Output Total 710 ml 850 ml 1150 ml Balance -530 ml 290 ml -190 ml ANAND VIZCARRA MD January 19, 2017 09:36
[2017-01-19 10:52] VITALS: BP 124/63
--- NOTE | 2017-01-19 10:56 | PDOC ---
SUBJECTIVE ROS ^ed CK ? Rhabdo vs myositis feeling much better today, not weak per se OBJECTIVE Vital Signs Vital Signs Date Time Temp Pulse Resp B/P (MAP) Pulse Ox O2 Delivery O2 Flow Rate FiO2 01/19/17 10:52 97.9 69 18 124/63 (83) 95 Room Air 97.9 I & 0 Intake and Output 01/19/17 07:00 Intake Total 2280 ml Output Total 2710 ml Balance -430 ml Intake Oral 360 ml IV Total 1920 ml Output Urine Total 2710 ml # Voids 2 PHYSICAL EXAM Physical Exam General Appearance: Awake: Alert Oriented x 3 Neck: No JVD or JVP Chest: CTA [place] Heart: S1 S2 Abdomen - Soft NTND Extremities - No Edema DIAGNOSIS/ASSESSMENT Assessment & Plan ^ed CK - pt is being evaluated for Myositis vs Rhabdo - ct IVF for now to prevent DANN. creat has been WNL for now Muscle Bx has been setup for Saturday Problems: COMMENT/RELEVANT DATA Meds Current Medications Medications (Trade) Dose Ordered Sig/Vanessa Start Time Stop Time Status Last Admin Dose Admin Acetaminophen (Tylenol) 650 mg PRN Q6HRS PRN 01/17/17 16:45 01/18/17 15:43 650 MG Al Hydroxide/Mg Hydroxide (Mylanta Plus Xs) 30 ml PRN Q3HRS PRN 01/17/17 16:45 Bisacodyl (Dulcolax Supp) 10 mg PRN DAILY PRN 01/17/17 16:45 Calcium Carbonate/ Glycine (Tums) 500 mg PRN Q3HRS PRN 01/17/17 16:45 Dextrose (Dextrose 50%-Water Syringe) 12.5 gm PRN Q15MIN PRN 01/17/17 17:00 Insulin Aspart (Novolog) 0-7 UNITS TIDWMEALS 01/17/17 17:00 Ketorolac Tromethamine (Toradol) 15 mg PRN Q6HRS PRN 01/17/17 16:45 01/22/17 16:44 Magnesium Hydroxide (Milk Of Magnesia) 2,400 mg PRN Q12HR PRN 01/17/17 16:45 Magnesium Sulfate/ Dextrose 50 ml @ 25 mls/hr 1X ONCE 01/18/17 14:30 01/18/17 16:29 DC 01/18/17 15:28 25 MLS/HR Morphine Sulfate 1 mg PRN Q1HR PRN 01/17/17 16:45 Ondansetron HCl (Zofran) 4 mg PRN Q6HRS PRN 01/17/17 16:45 Oxycodone HCl (Roxicodone) 5 mg PRN Q3HRS PRN 01/17/17 16:45 Pantoprazole Sodium (Protonix) 40 mg DAILYAC 01/19/17 07:30 01/19/17 06:14 40 MG Potassium Chloride (Klor-Con) 40 meq 1X ONCE 01/18/17 14:30 01/18/17 14:31 DC 01/18/17 15:27 40 MEQ Ringer's Solution 1,000 ml @ 150 mls/hr Q6H40M 01/17/17 17:30 01/19/17 04:44 150 MLS/HR Zolpidem Tartrate (Ambien) 5 mg PRN QHS PRN 01/17/17 16:45 01/18/17 22:33 5 MG Lab Laboratory Tests Test 01/18/17 11:38 01/18/17 12:00 01/18/17 16:35 01/19/17 04:40 Glucose (Fingerstick) 90 mg/dL (70-99) 75 mg/dL (70-99) Urine Opiates Screen Neg (NEG) Urine Methadone Screen Neg (NEG) Urine Barbiturates Neg (NEG) Urine Phencyclidine Screen Neg (NEG) Urine Amphetamine/Methamphetamine Neg (NEG) Urine Benzodiazepines Screen Neg (NEG) Urine Cocaine Screen Neg (NEG) Urine Cannabinoids Screen Neg (NEG) Urine Ethyl Alcohol Neg (NEG) Sodium Level 141 mmol/L (136-145) Potassium Level 3.9 mmol/L (3.5-5.1) Chloride Level 107 mmol/L (98-107) Carbon Dioxide Level 30 mmol/L (21-32) Anion Gap 4 (6-14) Blood Urea Nitrogen 12 mg/dL (8-26) Creatinine 0.7 mg/dL (0.7-1.3) Estimated GFR (Cockcroft-Gault) 111.8 Glucose Level 90 mg/dL (70-99) Calcium Level 8.7 mg/dL (8.5-10.1) Phosphorus Level 4.3 mg/dL (2.6-4.7) Creatine Kinase 58696 U/L (39-308) Albumin 3.0 g/dL (3.4-5.0) Test 01/19/17 07:38 01/19/17 10:07 Glucose (Fingerstick) 98 mg/dL (70-99) 108 mg/dL (70-99) GERRY MUNGUIA MD January 19, 2017 10:56
[2017-01-19 15:13] VITALS: BP 122/65
[2017-01-19 19:00] VITALS: BP 149/58
[2017-01-19] MEDS: ZOLPIDEM 5 MG TABLET. PO PRN (21:44)
[2017-01-19 23:00] VITALS: BP 130/52
[2017-01-20] MEDS: IV RINGERS,LACTATED 1000ML 1,000 ML IV SCH ×4 (05:16→21:04)
[2017-01-20 05:41] LABS: ALBUMIN 3.1 g/dL (3.4-5.0); CREATININE 0.7 mg/dL (0.7-1.3); GFR 111.8; PHOSPHORUS 4.3 mg/dL (2.6-4.7); POTASSIUM 4.2 mmol/L (3.5-5.1)
[2017-01-20 07:00] VITALS: BP 126/63
[2017-01-20] MEDS: INSULIN ASPART 300 UNITS/3 ML INSULN.PEN SQ SCH ×3 (08:00→17:00)
[2017-01-20] MEDS: PANTOPRAZOLE 40 MG TABLET.DR. PO SCH (08:50)
--- NOTE | 2017-01-20 10:00 | PDOC ---
PROGRESS NOTES Chief Complaint Chief Complaint 1. 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 and similar rheum condition 2. DM 2on OHA 3. Dyslipdiemia 4. GERd 5. Eleavted Lfts (100-300s arnge) 6. Rhabdo (CPK 29K) 7. recent mechanical fall, 1.5 weeks ago 8,. Non etoh drinker 9. Elevated aldolase (108) - mild elevation 10. Subclincal hypothy - TSH marginally high 6 and T3 T4 - not enough to explain pt's remarkable labs and sxs 11. Hyperchloremia sec to NS - fast infusion x 1 week History of Present Illness History of Present Illness mild bl proximal muscle weakness, no skin rash good urine output Off IVF, got 5 bags of LR CPK better 12K from 29 K Planned for muscle biopsy by GS on saturday Rheum consult hopefully to be done on saturday PLAn: Muscle biopsy on Saturday by GS Ff up rheum consult on saturday CPK daily ordered by renal Recheck LFTs, make sure not climbing up NPO post mN for muscle biopsy by GS Vitals Vitals Vital Signs Date Time Temp Pulse Resp B/P (MAP) Pulse Ox O2 Delivery O2 Flow Rate FiO2 01/20/17 07:00 97.9 74 18 126/63 (84) 97 Room Air 97.9 Physical Exam Physical Exam mild bl proximal ext weakness General: Alert, Oriented X3, Cooperative, No acute distress Heart: Regular rate, Normal S1, Normal S2, No murmurs Abdomen: Normal bowel sounds, Soft, No tenderness, No hepatosplenomegaly, No masses Extremities: No clubbing, No cyanosis Skin: No rashes, No breakdown Labs LABS Laboratory Tests Test 01/19/17 10:07 01/19/17 16:09 01/19/17 20:56 01/20/17 04:15 Glucose (Fingerstick) 108 mg/dL (70-99) 93 mg/dL (70-99) 90 mg/dL (70-99) Sodium Level 141 mmol/L (136-145) Potassium Level 4.2 mmol/L (3.5-5.1) Chloride Level 106 mmol/L (98-107) Carbon Dioxide Level 31 mmol/L (21-32) Anion Gap 4 (6-14) Blood Urea Nitrogen 13 mg/dL (8-26) Creatinine 0.7 mg/dL (0.7-1.3) Estimated GFR (Cockcroft-Gault) 111.8 Glucose Level 89 mg/dL (70-99) Calcium Level 9.0 mg/dL (8.5-10.1) Phosphorus Level 4.3 mg/dL (2.6-4.7) Creatine Kinase 91211 U/L (39-308) Albumin 3.1 g/dL (3.4-5.0) Test 01/20/17 07:31 Glucose (Fingerstick) 94 mg/dL (70-99) Review of Systems Review of Systems no cp, soa, n,.v.d Comment Review of Relevant I have reviewed the following items kathie (where applicable) has been applied. Labs Laboratory Tests Test 01/18/17 10:50 01/18/17 11:38 01/18/17 12:00 01/18/17 16:35 Erythrocyte Sedimentation Rate 30 (0-15) Glucose (Fingerstick) 90 mg/dL (70-99) 75 mg/dL (70-99) Urine Opiates Screen Neg (NEG) Urine Methadone Screen Neg (NEG) Urine Barbiturates Neg (NEG) Urine Phencyclidine Screen Neg (NEG) Urine Amphetamine/Methamphetamine Neg (NEG) Urine Benzodiazepines Screen Neg (NEG) Urine Cocaine Screen Neg (NEG) Urine Cannabinoids Screen Neg (NEG) Urine Ethyl Alcohol Neg (NEG) Test 01/19/17 04:40 01/19/17 07:38 01/19/17 10:07 01/19/17 16:09 Sodium Level 141 mmol/L (136-145) Potassium Level 3.9 mmol/L (3.5-5.1) Chloride Level 107 mmol/L (98-107) Carbon Dioxide Level 30 mmol/L (21-32) Anion Gap 4 (6-14) Blood Urea Nitrogen 12 mg/dL (8-26) Creatinine 0.7 mg/dL (0.7-1.3) Estimated GFR (Cockcroft-Gault) 111.8 Glucose Level 90 mg/dL (70-99) Calcium Level 8.7 mg/dL (8.5-10.1) Phosphorus Level 4.3 mg/dL (2.6-4.7) Creatine Kinase 63519 U/L (39-308) Albumin 3.0 g/dL (3.4-5.0) Glucose (Fingerstick) 98 mg/dL (70-99) 108 mg/dL (70-99) 93 mg/dL (70-99) Test 01/19/17 20:56 01/20/17 04:15 01/20/17 07:31 Glucose (Fingerstick) 90 mg/dL (70-99) 94 mg/dL (70-99) Sodium Level 141 mmol/L (136-145) Potassium Level 4.2 mmol/L (3.5-5.1) Chloride Level 106 mmol/L (98-107) Carbon Dioxide Level 31 mmol/L (21-32) Anion Gap 4 (6-14) Blood Urea Nitrogen 13 mg/dL (8-26) Creatinine 0.7 mg/dL (0.7-1.3) Estimated GFR (Cockcroft-Gault) 111.8 Glucose Level 89 mg/dL (70-99) Calcium Level 9.0 mg/dL (8.5-10.1) Phosphorus Level 4.3 mg/dL (2.6-4.7) Creatine Kinase 74174 U/L (39-308) Albumin 3.1 g/dL (3.4-5.0) Laboratory Tests Test 01/19/17 10:07 01/19/17 16:09 01/19/17 20:56 01/20/17 04:15 Glucose (Fingerstick) 108 mg/dL (70-99) 93 mg/dL (70-99) 90 mg/dL (70-99) Sodium Level 141 mmol/L (136-145) Potassium Level 4.2 mmol/L (3.5-5.1) Chloride Level 106 mmol/L (98-107) Carbon Dioxide Level 31 mmol/L (21-32) Anion Gap 4 (6-14) Blood Urea Nitrogen 13 mg/dL (8-26) Creatinine 0.7 mg/dL (0.7-1.3) Estimated GFR (Cockcroft-Gault) 111.8 Glucose Level 89 mg/dL (70-99) Calcium Level 9.0 mg/dL (8.5-10.1) Phosphorus Level 4.3 mg/dL (2.6-4.7) Creatine Kinase 85962 U/L (39-308) Albumin 3.1 g/dL (3.4-5.0) Test 01/20/17 07:31 Glucose (Fingerstick) 94 mg/dL (70-99) Medications Current Medications Ondansetron HCl (Zofran) 4 mg PRN Q6HRS PRN IV NAUSEA/VOMITING; Start 01/17/17 at 16:45 Al Hydroxide/Mg Hydroxide (Mylanta Plus Xs) 30 ml PRN Q3HRS PRN PO HEARTBURN / GAS; Start 01/17/17 at 16:45 Calcium Carbonate/ Glycine (Tums) 500 mg PRN Q3HRS PRN PO UPSET STOMACH; Start 01/17/17 at 16:45 Zolpidem Tartrate (Ambien) 5 mg PRN QHS PRN PO INSOMNIA, MAY REPEAT IN 1HR Last administered on 01/19/17 21:44; Start 01/17/17 at 16:45 Oxycodone HCl (Roxicodone) 5 mg PRN Q3HRS PRN PO BREAKTHROUGH PAIN; Start at 16:45 Morphine Sulfate 1 mg PRN Q1HR PRN IV PAIN; Start 01/17/17 at 16:45 Ketorolac Tromethamine (Toradol) 15 mg PRN Q6HRS PRN IV PAIN; Start 01/17/17 at 16:45; Stop 01/22/17 at 16:44 Acetaminophen (Tylenol) 650 mg PRN Q6HRS PRN PO Headaches, Temp > 101.5F Last administered on 01/18/17 15:43; Start 01/17/17 at 16:45 Magnesium Hydroxide (Milk Of Magnesia) 2,400 mg PRN Q12HR PRN PO CONSTIPATION; Start 01/17/17 at 16:45 Bisacodyl (Dulcolax Supp) 10 mg PRN DAILY PRN [place] CONSTIPATION; Start 01/17/17 at 16:45 Insulin Aspart (Novolog) 0-7 UNITS TIDWMEALS SQ ; Start 01/17/17 at 17:00 Dextrose (Dextrose 50%-Water Syringe) 12.5 gm PRN Q15MIN PRN IV SEE COMMENTS; Start 01/17/17 at 17:00 Ringer's Solution 1,000 ml @ 150 mls/hr Q6H40M IV Last administered on 05:16; Start 01/17/17 at 17:30 Pantoprazole Sodium (Protonix) 40 mg DAILYAC PO Last administered on 01/20/17 08:50; Start 01/19/17 at 07:30 Magnesium Sulfate/ Dextrose 50 ml @ 25 mls/hr 1X ONCE IV Last administered on 01/18/17 15:28; Start 01/18/17 at 14:30; Stop 01/18/17 at 16:29; Status DC Potassium Chloride (Klor-Con) 40 meq 1X ONCE PO Last administered on 01/18/17 15:27; Start 01/18/17 at 14:30; Stop 01/18/17 at 14:31; Status DC Active Scripts Active Reported Simvastatin Unknown Strength Tablet Unknown Dose PO QHS Metformin Hcl 500 Mg Tablet 500 Mg PO PRN Vitals/I & O Vital Sign - Last 24 Hours 01/19/17 01/19/17 01/19/17 01/19/17 10:52 15:13 19:00 20:00 Temp 97.9 97.7 97.9 97.9 97.7 97.9 Pulse 69 70 74 Resp 18 18 18 B/P (MAP) 124/63 (83) 122/65 (84) 149/58 (88) Pulse Ox 95 98 98 O2 Delivery Room Air Room Air Room Air Room Air 01/19/17 01/20/17 23:00 07:00 Temp 97.5 97.9 97.5 97.9 Pulse 71 74 Resp 17 18 B/P (MAP) 130/52 (78) 126/63 (84) Pulse Ox 97 97 O2 Delivery Room Air Room Air Intake and Output 01/19/17 01/19/17 01/20/17 15:00 23:00 07:00 Intake Total 500 ml 1050 ml Output Total 400 ml 1800 ml 850 ml Balance 100 ml -750 ml -850 ml ANAND VIZCARRA MD January 20, 2017 09:59
[2017-01-20 11:15] VITALS: BP 136/55
[2017-01-20 14:39] VITALS: BP 131/52
[2017-01-20 19:00] VITALS: BP 113/59
[2017-01-20] MEDS: ZOLPIDEM 5 MG TABLET. PO PRN (22:28)
[2017-01-20 23:00] VITALS: BP 138/61
[2017-01-21] VITALS (8 sets, daily range): BP systolic 129–144; BP diastolic 52–77
[2017-01-21 04:24] LABS: ALBUMIN 3.1 g/dL (3.4-5.0); CALCIUM 8.9 mg/dL (8.5-10.1); CREATININE 0.7 mg/dL (0.7-1.3); GFR 111.8; PHOSPHORUS 4.6 mg/dL (2.6-4.7); POTASSIUM 3.9 mmol/L (3.5-5.1)
[2017-01-21] MEDS: IV RINGERS,LACTATED 1000ML 1,000 ML IV SCH ×3 (04:38→22:52)
[2017-01-21 04:56] LABS: ALBUMIN 3.2 g/dL (3.4-5.0); DIRECT BILIRUBIN 0.2 mg/dL (0.0-0.2); TOTAL BILIRUBIN 0.5 mg/dL (0.2-1.0)
[2017-01-21] MEDS: INSULIN ASPART 300 UNITS/3 ML INSULN.PEN SQ SCH ×3 (08:00→16:49)
[2017-01-21] MEDS ORDERED: PROPOFOL 20 ML IV ONE (09:29)
[2017-01-21] MEDS ORDERED: MIDAZOLAM HCL/PF 2 MG/2 ML VIAL. ONE (09:30)
[2017-01-21] MEDS ORDERED: PROPOFOL 50 ML IV ONE (09:32)
[2017-01-21] MEDS ORDERED: BUPIVACAINE-EPI 0.25%-1:200000 MPF 30 ML VIAL. ONE (09:51)
[2017-01-21] MEDS ORDERED: BUPIVAC MPF-EPI 0.5%-1:200000 30 ML VIAL. ONE (09:51)
--- NOTE | 2017-01-21 09:57 | PDOC ---
PROGRESS NOTES Chief Complaint Chief Complaint cc: muscle pain A/P 1. 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 2. DM 2on OHA 3. Dyslipidemia 4. GERd 5. Elevated Lfts (100-300s arnge) 6. Rhabdo (CPK 29K) 7. recent mechanical fall, 1.5 weeks ago 8,. Non etoh drinker 9. Elevated aldolase (108) - mild elevation 10. Subclinical hypothy - TSH marginally high 6 and T3 T4 - not enough to explain pt's remarkable labs and sxs Plan continue iv hydration started on prednisone, , d/w Rheumatology, need out pt follow up with Biopsy results, until then continue Prednisone day s/p muscle biopsy today SSI pain control Monitor CPK Supportive care. History of Present Illness History of Present Illness doing better good urine out no fever no chills no acute events. Vitals Vitals Vital Signs Date Time Temp Pulse Resp B/P (MAP) Pulse Ox O2 Delivery O2 Flow Rate FiO2 01/21/17 09:29 97.5 71 12 153/68 99 Room Air 97.5 Physical Exam Physical Exam mild bl proximal ext weakness General: Alert, Oriented X3, Cooperative, No acute distress Heart: Regular rate, Normal S1, Normal S2, No murmurs Abdomen: Normal bowel sounds, Soft, No tenderness, No hepatosplenomegaly, No masses Extremities: No clubbing, No cyanosis Skin: No rashes, No breakdown Labs LABS Laboratory Tests Test 01/20/17 10:11 01/20/17 15:56 01/20/17 20:19 01/21/17 03:05 Glucose (Fingerstick) 128 mg/dL (70-99) 88 mg/dL (70-99) 157 mg/dL (70-99) Sodium Level 142 mmol/L (136-145) Potassium Level 3.9 mmol/L (3.5-5.1) Chloride Level 106 mmol/L (98-107) Carbon Dioxide Level 31 mmol/L (21-32) Anion Gap 5 (6-14) Blood Urea Nitrogen 14 mg/dL (8-26) Creatinine 0.7 mg/dL (0.7-1.3) Estimated GFR (Cockcroft-Gault) 111.8 Glucose Level 84 mg/dL (70-99) Calcium Level 8.9 mg/dL (8.5-10.1) Phosphorus Level 4.6 mg/dL (2.6-4.7) Total Bilirubin 0.5 mg/dL (0.2-1.0) Direct Bilirubin 0.2 mg/dL (0.0-0.2) Aspartate Amino Transf (AST/SGOT) 197 U/L (15-37) Alanine Aminotransferase (ALT/SGPT) 349 U/L (16-63) Alkaline Phosphatase 56 U/L (46-116) Creatine Kinase 13626 U/L (39-308) Total Protein 6.0 g/dL (6.4-8.2) Albumin 3.2 g/dL (3.4-5.0) Test 01/21/17 07:26 Glucose (Fingerstick) 95 mg/dL (70-99) Comment Review of Relevant I have reviewed the following items kathie (where applicable) has been applied. Labs Laboratory Tests Test 01/19/17 10:07 01/19/17 16:09 01/19/17 20:56 01/20/17 04:15 Glucose (Fingerstick) 108 mg/dL (70-99) 93 mg/dL (70-99) 90 mg/dL (70-99) Sodium Level 141 mmol/L (136-145) Potassium Level 4.2 mmol/L (3.5-5.1) Chloride Level 106 mmol/L (98-107) Carbon Dioxide Level 31 mmol/L (21-32) Anion Gap 4 (6-14) Blood Urea Nitrogen 13 mg/dL (8-26) Creatinine 0.7 mg/dL (0.7-1.3) Estimated GFR (Cockcroft-Gault) 111.8 Glucose Level 89 mg/dL (70-99) Calcium Level 9.0 mg/dL (8.5-10.1) Phosphorus Level 4.3 mg/dL (2.6-4.7) Creatine Kinase 16164 U/L (39-308) Albumin 3.1 g/dL (3.4-5.0) Test 01/20/17 07:31 01/20/17 10:11 01/20/17 15:56 01/20/17 20:19 Glucose (Fingerstick) 94 mg/dL (70-99) 128 mg/dL (70-99) 88 mg/dL (70-99) 157 mg/dL (70-99) Test 01/21/17 03:05 01/21/17 07:26 Sodium Level 142 mmol/L (136-145) Potassium Level 3.9 mmol/L (3.5-5.1) Chloride Level 106 mmol/L (98-107) Carbon Dioxide Level 31 mmol/L (21-32) Anion Gap 5 (6-14) Blood Urea Nitrogen 14 mg/dL (8-26) Creatinine 0.7 mg/dL (0.7-1.3) Estimated GFR (Cockcroft-Gault) 111.8 Glucose Level 84 mg/dL (70-99) Calcium Level 8.9 mg/dL (8.5-10.1) Phosphorus Level 4.6 mg/dL (2.6-4.7) Total Bilirubin 0.5 mg/dL (0.2-1.0) Direct Bilirubin 0.2 mg/dL (0.0-0.2) Aspartate Amino Transf (AST/SGOT) 197 U/L (15-37) Alanine Aminotransferase (ALT/SGPT) 349 U/L (16-63) Alkaline Phosphatase 56 U/L (46-116) Creatine Kinase 46949 U/L (39-308) Total Protein 6.0 g/dL (6.4-8.2) Albumin 3.2 g/dL (3.4-5.0) Glucose (Fingerstick) 95 mg/dL (70-99) Laboratory Tests Test 01/20/17 10:11 01/20/17 15:56 01/20/17 20:19 01/21/17 03:05 Glucose (Fingerstick) 128 mg/dL (70-99) 88 mg/dL (70-99) 157 mg/dL (70-99) Sodium Level 142 mmol/L (136-145) Potassium Level 3.9 mmol/L (3.5-5.1) Chloride Level 106 mmol/L (98-107) Carbon Dioxide Level 31 mmol/L (21-32) Anion Gap 5 (6-14) Blood Urea Nitrogen 14 mg/dL (8-26) Creatinine 0.7 mg/dL (0.7-1.3) Estimated GFR (Cockcroft-Gault) 111.8 Glucose Level 84 mg/dL (70-99) Calcium Level 8.9 mg/dL (8.5-10.1) Phosphorus Level 4.6 mg/dL (2.6-4.7) Total Bilirubin 0.5 mg/dL (0.2-1.0) Direct Bilirubin 0.2 mg/dL (0.0-0.2) Aspartate Amino Transf (AST/SGOT) 197 U/L (15-37) Alanine Aminotransferase (ALT/SGPT) 349 U/L (16-63) Alkaline Phosphatase 56 U/L (46-116) Creatine Kinase 74568 U/L (39-308) Total Protein 6.0 g/dL (6.4-8.2) Albumin 3.2 g/dL (3.4-5.0) Test 01/21/17 07:26 Glucose (Fingerstick) 95 mg/dL (70-99) Medications Current Medications Ondansetron HCl (Zofran) 4 mg PRN Q6HRS PRN IV NAUSEA/VOMITING; Start 01/17/17 at 16:45 Al Hydroxide/Mg Hydroxide (Mylanta Plus Xs) 30 ml PRN Q3HRS PRN PO HEARTBURN / GAS; Start 01/17/17 at 16:45 Calcium Carbonate/ Glycine (Tums) 500 mg PRN Q3HRS PRN PO UPSET STOMACH; Start 01/17/17 at 16:45 Zolpidem Tartrate (Ambien) 5 mg PRN QHS PRN PO INSOMNIA, MAY REPEAT IN 1HR Last administered on 01/20/17 22:28; Start 01/17/17 at 16:45 Oxycodone HCl (Roxicodone) 5 mg PRN Q3HRS PRN PO BREAKTHROUGH PAIN; Start at 16:45 Morphine Sulfate 1 mg PRN Q1HR PRN IV PAIN; Start 01/17/17 at 16:45 Ketorolac Tromethamine (Toradol) 15 mg PRN Q6HRS PRN IV PAIN; Start 01/17/17 at 16:45; Stop 01/22/17 at 16:44 Acetaminophen (Tylenol) 650 mg PRN Q6HRS PRN PO Headaches, Temp > 101.5F Last administered on 01/18/17 15:43; Start 01/17/17 at 16:45 Magnesium Hydroxide (Milk Of Magnesia) 2,400 mg PRN Q12HR PRN PO CONSTIPATION; Start 01/17/17 at 16:45 Bisacodyl (Dulcolax Supp) 10 mg PRN DAILY PRN [place] CONSTIPATION; Start 01/17/17 at 16:45 Insulin Aspart (Novolog) 0-7 UNITS TIDWMEALS SQ ; Start 01/17/17 at 17:00 Dextrose (Dextrose 50%-Water Syringe) 12.5 gm PRN Q15MIN PRN IV SEE COMMENTS; Start 01/17/17 at 17:00 Ringer's Solution 1,000 ml @ 150 mls/hr Q6H40M IV Last administered on 04:38; Start 01/17/17 at 17:30 Pantoprazole Sodium (Protonix) 40 mg DAILYAC PO Last administered on 01/20/17 08:50; Start 01/19/17 at 07:30 Magnesium Sulfate/ Dextrose 50 ml @ 25 mls/hr 1X ONCE IV Last administered on 01/18/17 15:28; Start 01/18/17 at 14:30; Stop 01/18/17 at 16:29; Status DC Potassium Chloride (Klor-Con) 40 meq 1X ONCE PO Last administered on 01/18/17 15:27; Start 01/18/17 at 14:30; Stop 01/18/17 at 14:31; Status DC Propofol 20 ml @ As Directed STK-MED ONCE IV ; Start 01/21/17 at 09:29; Stop 01/21 at 09:30; Status DC Midazolam HCl (Versed) 2 mg STK-MED ONCE .ROUTE ; Start 01/21/17 at 09:30; Stop 01/21/17 at 09:31; Status DC Propofol 50 ml @ As Directed STK-MED ONCE IV ; Start 01/21/17 at 09:32; Stop 01/21 at 09:33; Status DC Cefazolin Sodium/ Dextrose 50 ml @ As Directed STK-MED ONCE IV ; Start 01/21/17 at 09:47; Stop 01/21/17 at 09:48; Status DC Bupivacaine HCl/ Epinephrine Bitart (Sensorcain-Mpf Epi 0.5%-1:089181) 30 ml STK -MED ONCE .ROUTE ; Start 01/21/17 at 09:51; Stop 01/21/17 at 09:52; Status DC Bupivacaine HCl/ Epinephrine Bitart (Sensorcaine-Epi 0.25%-1:584298 Mpf) 30 ml STK-MED ONCE .ROUTE ; Start 01/21/17 at 09:51; Stop 01/21/17 at 09:52; Status DC Active Scripts Active Reported Simvastatin Unknown Strength Tablet Unknown Dose PO QHS Metformin Hcl 500 Mg Tablet 500 Mg PO PRN Vitals/I & O Vital Sign - Last 24 Hours 01/20/17 01/20/17 01/20/17 01/20/17 11:15 14:39 19:00 20:00 Temp 97.9 97.9 98.4 97.9 97.9 98.4 Pulse 72 70 76 Resp 18 18 20 B/P (MAP) 136/55 (82) 131/52 (78) 113/59 (77) Pulse Ox 98 96 97 O2 Delivery Room Air Room Air Room Air Room Air 01/20/17 01/21/17 01/21/17 23:00 07:00 09:29 Temp 97.9 97.8 97.5 97.9 97.8 97.5 Pulse 73 77 71 Resp 20 18 12 B/P (MAP) 138/61 (86) 129/52 (77) 153/68 Pulse Ox 100 95 99 O2 Delivery Room Air Room Air Room Air Intake and Output 01/20/17 01/20/17 01/21/17 14:59 22:59 06:59 Intake Total 1500 ml 1250 ml 500 ml Output Total 500 ml 1300 ml 750 ml Balance 1000 ml -50 ml -250 ml NATI HOU MD January 21, 2017 09:57
--- NOTE | 2017-01-21 10:36 | PDOC ---
BRIEF OPERATIVE NOTE Date: January 21, 2017 Pre-Op Diagnosis Rhabdomyelisis Post-Op Diagnosis Same Procedure Performed Right thigh muscle biopsy Surgeon Wilver Anesthesia Type: MAC Blood Loss 5ml Specimens Obtained muscle biopsy Findings as above Complications None NAHEED HERNÁNDEZ MD January 21, 2017 10:36
--- NOTE | 2017-01-21 12:01 | PDOC ---
Subjective: Subjective: Back from muscle biopsy. Feeling okay - still weak. Objective: Vital Signs: Vital Signs Date Time Temp Pulse Resp B/P (MAP) Pulse Ox O2 Delivery O2 Flow Rate FiO2 01/21/17 11:08 97.7 60 18 124/48 98 Room Air 97.7 01/21/17 10:53 10 Labs: Laboratory Tests Test 01/20/17 15:56 01/20/17 20:19 01/21/17 03:05 01/21/17 07:26 Glucose (Fingerstick) 88 mg/dL 157 mg/dL 95 mg/dL Sodium Level 142 mmol/L Potassium Level 3.9 mmol/L Chloride Level 106 mmol/L Carbon Dioxide Level 31 mmol/L Anion Gap 5 Blood Urea Nitrogen 14 mg/dL Creatinine 0.7 mg/dL Estimated GFR (Cockcroft-Gault) 111.8 Glucose Level 84 mg/dL Calcium Level 8.9 mg/dL Phosphorus Level 4.6 mg/dL Total Bilirubin 0.5 mg/dL Direct Bilirubin 0.2 mg/dL Aspartate Amino Transf (AST/SGOT) 197 U/L Alanine Aminotransferase (ALT/SGPT) 349 U/L Alkaline Phosphatase 56 U/L Creatine Kinase 54607 U/L Total Protein 6.0 g/dL Albumin 3.2 g/dL Test 01/21/17 10:45 01/21/17 11:48 Glucose (Fingerstick) 89 mg/dL 82 mg/dL PE: GEN: NAD LUNGS: CTAB HEART: RRR ABD: S/ND/NT NEURO/PSYCH: A & O 3 A/P: Weakness, rhabdomyolysis, s/p muscle biopsy 01/21 (right thigh) Transaminitis -- Other per Dr. Finnegan. LARISSA BRUNO January 21, 2017 12:01
[2017-01-21] MEDS: PANTOPRAZOLE 40 MG TABLET.DR. PO SCH (12:02)
--- NOTE | 2017-01-21 12:09 | OP ---
DATE OF SURGERY: 01/21/2017 PREOPERATIVE DIAGNOSIS: Rhabdomyolysis. POSTOPERATIVE DIAGNOSIS: Rhabdomyolysis. PROCEDURE: Right thigh muscle biopsy. SURGEON: Romulo Hernández M.D. INDICATIONS: The patient is a 71-year-old gentleman who was admitted to the hospital with weakness, fatigue, elevated creatinine and CK levels, possible rhabdomyolysis versus myositis. Procedure of muscle biopsy was explained to the patient in detail. Risks, benefits were also discussed including bleeding, infection and alternatives of this procedure were also discussed with the patient who seemed to understand and gave verbal and written consent to have the procedure performed. DESCRIPTION OF PROCEDURE: The patient was taken to the operating room and placed in the supine position. IV sedation was initiated by anesthesia. Once the patient was appropriately sedated, area on his right thigh was prepped and draped in usual sterile fashion using ChloraPrep and area over the thigh was injected with 0.25% Marcaine with epinephrine. Incision made with 15 blade scalpel, this was carried down through the subcutaneous tissue down to the muscle. Fascia was incised with Metzenbaum scissors. The muscle was then placed within a muscle clamp and excised sharply and sent for pathology. The wound was then closed in two layers, deep with a running 3-0 Vicryl and the skin was reapproximated with 4-0 subcuticular Monocryl. Mastisol, Steri-Strips and island dressing were applied. The patient was awakened from sedation and taken to recovery in stable condition. All sponge, instrument counts listed as correct. Estimated blood loss was less than 5 mL. ROMULO HERNÁNDEZ MD DR: ANGELY/renae JOB#: [id number] / [id number]
[2017-01-21] MEDS: predniSONE 10 MG TABLET PO SCH (14:59)
--- NOTE | 2017-01-21 16:23 | PDOC ---
Renal-Progress Notes Subjective Notes Notes NOTHING NEW History of Present Illness Hx of present illness STABLE Vitals Vitals Vital Signs Date Time Temp Pulse Resp B/P (MAP) Pulse Ox O2 Delivery O2 Flow Rate FiO2 01/21/17 15:00 98.2 76 16 138/54 (82) 95 Room Air 98.2 01/21/17 10:53 10 Weight Weight [ ] I.O. Intake and Output Intake and Output 01/21/17 07:00 Intake Total 3250 ml Output Total 2550 ml Balance 700 ml Intake Oral 2250 ml IV Total 1000 ml Output Urine Total 2550 ml # Voids 2 Labs Labs Laboratory Tests Test 01/20/17 20:19 01/21/17 03:05 01/21/17 07:26 01/21/17 10:45 Glucose (Fingerstick) 157 mg/dL (70-99) 95 mg/dL (70-99) 89 mg/dL (70-99) Sodium Level 142 mmol/L (136-145) Potassium Level 3.9 mmol/L (3.5-5.1) Chloride Level 106 mmol/L (98-107) Carbon Dioxide Level 31 mmol/L (21-32) Anion Gap 5 (6-14) Blood Urea Nitrogen 14 mg/dL (8-26) Creatinine 0.7 mg/dL (0.7-1.3) Estimated GFR (Cockcroft-Gault) 111.8 Glucose Level 84 mg/dL (70-99) Calcium Level 8.9 mg/dL (8.5-10.1) Phosphorus Level 4.6 mg/dL (2.6-4.7) Total Bilirubin 0.5 mg/dL (0.2-1.0) Direct Bilirubin 0.2 mg/dL (0.0-0.2) Aspartate Amino Transf (AST/SGOT) 197 U/L (15-37) Alanine Aminotransferase (ALT/SGPT) 349 U/L (16-63) Alkaline Phosphatase 56 U/L (46-116) Creatine Kinase 60316 U/L (39-308) Total Protein 6.0 g/dL (6.4-8.2) Albumin 3.2 g/dL (3.4-5.0) Test 01/21/17 11:48 Glucose (Fingerstick) 82 mg/dL (70-99) Review of Systems Constitutional: yes: alert, oriented Ears/Nose/Throat: Yes: no symptom reported Pulmonary: Yes no symptom reported Gastrointestional: Yes: no symptom reported Psychiatric/Neurological: Yes: no symptom reported Physical Exam General Appearance: no apparent distress Skin: warm Respiratory: bilateral CTA Heart: S1S2, RRR Abdomen: soft, bowel sounds present Genitourinary: bladder flat Neurology: alert Musculoskeletal: Osteoarthritis Assessment Assessment IMP RHABDOMYOLYSIS WITH NO DANN PLAN CONT WITH IVF'S LABS IN AM MUSCLE BX KIANNA CORDERO MD January 21, 2017 16:23
[2017-01-21 20:42] LABS: BILIRUBIN,URINE NEGATIVE (NEG); GLUCOSE,URINE 100 mg/dL (NEG); NITRITE,URINE NEGATIVE (NEG); PROTEIN,URINE NEGATIVE (NEG-TRACE); UROBILINOGEN,URINE 0.2 mg/dL (0.2 mg/dL)
[2017-01-21 20:46] LABS: BACTERIA,URINE 0 /HPF (0-FEW); RBC,URINE 0 /HPF (0-2); SQUAMOUS EPITHELIAL CELL,UR OCC /LPF; WBC,URINE 0 /HPF (0-4)
[2017-01-21] MEDS: ZOLPIDEM 5 MG TABLET. PO PRN (22:52)
[2017-01-21] MEDS ORDERED: INSULIN ASPART 300 UNITS/3 ML INSULN.PEN SQ ONE (23:30)
--- NOTE | 2017-01-22 02:37 | CONS ---
DATE OF CONSULTATION: 01/21/2017 REQUESTING PHYSICIAN: Dr. Kenya Garcia. REASON FOR CONSULTATION: Elevated CPK and muscle weakness. HISTORY OF PRESENT ILLNESS: The patient is a 71-year-old male, who was admitted at the [facility] after the episode of fall due to the weakness. For further evaluation, he was transferred to the [facility]. He complains of weakness in upper arms and legs from about 5 months. About 2 or 3 weeks ago, he had an episode of fall and he has a difficulty to get up after falling down. On further evaluation, he was also found to have CPK in range of 25,000. So, rheumatology consultation has been requested for further evaluation and management. He still complains of same weakness, but he denies any joint pain, joint swelling, joint stiffness, skin rash, etc. His weakness is gradually improving. PAST MEDICAL HISTORY: Hyperlipidemia, osteoarthritis, and diabetes. PAST SURGICAL HISTORY: None. SOCIAL HISTORY: He denies tobacco smoking or alcohol abuse. FAMILY HISTORY: Negative for any autoimmune disease. MEDICATIONS: I have reviewed the list of medication as per chart. ALLERGIES: No known drug allergies. REVIEW OF SYSTEMS: Positive for weight loss about 10 pounds in last 5-6 months, but all other systems are reviewed and negative. PHYSICAL EXAMINATION: GENERAL: He is awake, alert, oriented x 3, not in acute distress. VITAL SIGNS: Revealed temperature 97.7, pulse 60, respirations at 18, blood pressure 124/48. SKIN: He does not have any rash. HEENT: Normocephalic, atraumatic head. No oral ulcerations. NECK: Supple. HEART: S1, S2 regular. LUNGS: Clear to auscultation. EXTREMITIES: No pitting edema. MUSCULOSKELETAL: Did not reveal any joint tenderness or active synovitis. CENTRAL NERVOUS SYSTEM: On gross examination, his muscle power is 5/5 on upper and lower extremities. LABORATORY DATA: I have reviewed his laboratory test results and his hemoglobin is 12.1, sed rate 30, creatinine 0.7, AST 197, and ALT 349, and his CPK is 10,730. His first CPK at [place] was about 25,000 as per patient. ASSESSMENT: 1. Generalized weakness. 2. Elevated CPK. 3. Elevated LFT. 4. Hyperlipidemia. 5. Wt. loss It is difficulty to comment on exact etiology of his elevated CPK and weakness. According to him, the episode of fall was not severe, and he did not lay down the floor for a long time. So, rhabdomyolysis will be unlikely. His painless muscular weakness and weight loss are suggestive of polymyositis, but his CPK is improving without any prednisone. So, possibly he could also have inclusion body myositis. So at present, I will recommend to start the prednisone 30 mg every day rather than 1 mg per kilogram body weight everyday. He was advised to have the followup appointment with me in 1 week and further recommendation will be given depending on the biopsy report. Thank you for allowing me to participate in his care. If any question, please do not hesitate to contact me. RAQUEL VAZQUEZ MD DR: QUYNH/renae JOB#: [id number] / [id number] MONTSE
[2017-01-22] MEDS: IV RINGERS,LACTATED 1000ML 1,000 ML IV SCH ×2 (05:21→10:50)
[2017-01-22] MEDS: PANTOPRAZOLE 40 MG TABLET.DR. PO SCH (06:36)
[2017-01-22 07:00] VITALS: BP 137/73
[2017-01-22] MEDS: INSULIN ASPART 300 UNITS/3 ML INSULN.PEN SQ SCH ×2 (08:00→11:03)
[2017-01-22 08:13] LABS: ALBUMIN 3.3 g/dL (3.4-5.0); CALCIUM 9.3 mg/dL (8.5-10.1); CREATININE 0.6 mg/dL (0.7-1.3); GFR 133.6; PHOSPHORUS 3.8 mg/dL (2.6-4.7); POTASSIUM 3.7 mmol/L (3.5-5.1)
[2017-01-22] MEDS: predniSONE 10 MG TABLET PO SCH (08:21)
[2017-01-22] MEDS ORDERED: PRED-220 PO (10:17)
[2017-01-22] MEDS ORDERED: HYDR-971 PO (10:33)
[2017-01-22 11:09] VITALS: BP 151/85
--- NOTE | 2017-01-22 12:06 | PDOC ---
Renal-Progress Notes Subjective Notes Notes NONE History of Present Illness Hx of present illness NO CHANGE Vitals Vitals Vital Signs Date Time Temp Pulse Resp B/P (MAP) Pulse Ox O2 Delivery O2 Flow Rate FiO2 01/22/17 11:09 97.8 70 18 151/85 (107) 97 Room Air 97.8 01/22/17 08:00 10.0 Weight Weight [ ] I.O. Intake and Output Intake and Output 01/22/17 06:59 Intake Total 2750 ml Output Total 3725 ml Balance -975 ml Intake Oral 1000 ml IV Total 1750 ml Output Urine Total 3725 ml # Voids 2 Labs Labs Laboratory Tests Test 01/21/17 16:33 01/21/17 20:18 01/21/17 21:59 01/22/17 02:03 Glucose (Fingerstick) 83 mg/dL (70-99) 237 mg/dL (70-99) 112 mg/dL (70-99) Urine Collection Type Unknown Urine Color Yellow Urine Clarity Clear Urine pH 7.0 Urine Specific [place] <=1.005 Urine Protein Negative mg/dL (NEG-TRACE) Urine Glucose (UA) 100 mg/dL (NEG) Urine Ketones (Stick) Negative mg/dL (NEG) Urine Blood Small (NEG) Urine Nitrite Negative (NEG) Urine Bilirubin Negative (NEG) Urine Urobilinogen Dipstick 0.2 mg/dL (0.2 mg/dL) Urine Leukocyte Esterase Negative (NEG) Urine RBC 0 /HPF (0-2) Urine WBC 0 /HPF (0-4) Urine Squamous Epithelial Cells Occ /LPF Urine Bacteria 0 /HPF (0-FEW) Urine Mucus Slight /LPF Test 01/22/17 07:30 01/22/17 07:34 01/22/17 10:54 Sodium Level 142 mmol/L (136-145) Potassium Level 3.7 mmol/L (3.5-5.1) Chloride Level 105 mmol/L (98-107) Carbon Dioxide Level 30 mmol/L (21-32) Anion Gap 7 (6-14) Blood Urea Nitrogen 15 mg/dL (8-26) Creatinine 0.6 mg/dL (0.7-1.3) Estimated GFR (Cockcroft-Gault) 133.6 Glucose Level 91 mg/dL (70-99) Calcium Level 9.3 mg/dL (8.5-10.1) Phosphorus Level 3.8 mg/dL (2.6-4.7) Creatine Kinase 8508 U/L (39-308) Albumin 3.3 g/dL (3.4-5.0) Glucose (Fingerstick) 89 mg/dL (70-99) 144 mg/dL (70-99) Review of Systems Constitutional: yes: alert, oriented Ears/Nose/Throat: Yes: no symptom reported Pulmonary: Yes no symptom reported Gastrointestional: Yes: no symptom reported Psychiatric/Neurological: Yes: no symptom reported Physical Exam General Appearance: no apparent distress Skin: warm Respiratory: bilateral CTA Heart: S1S2, RRR Abdomen: soft, bowel sounds present Genitourinary: bladder flat Neurology: alert Musculoskeletal: Osteoarthritis Assessment Assessment IMP RHABDOMYOLYSIS WITH NO DANN-CPK DECREASING PLAN CONT WITH IVF'S RHEUM EVAL AND TX MUSCLE BX WILL SIGN OFF KIANNA CORDERO MD January 22, 2017 12:05
--- NOTE | 2017-01-22 12:19 | PDOC ---
SURGICAL PROGRESS NOTE Subjective Doing well no complaints Vital Signs Vital Signs Date Time Temp Pulse Resp B/P (MAP) Pulse Ox O2 Delivery O2 Flow Rate FiO2 01/22/17 11:09 97.8 70 18 151/85 (107) 97 Room Air 97.8 01/22/17 08:00 10.0 I&O Intake and Output 01/22/17 07:00 Intake Total 2750 ml Output Total 3725 ml Balance -975 ml Intake Oral 1000 ml IV Total 1750 ml Output Urine Total 3725 ml # Voids 2 General: Alert, Oriented X3, Cooperative, No acute distress Skin: Other (wound C/D/I mild bruising) Labs Laboratory Tests Test 01/20/17 15:56 01/20/17 20:19 01/21/17 03:05 01/21/17 07:26 Glucose (Fingerstick) 88 mg/dL (70-99) 157 mg/dL (70-99) 95 mg/dL (70-99) Sodium Level 142 mmol/L (136-145) Potassium Level 3.9 mmol/L (3.5-5.1) Chloride Level 106 mmol/L (98-107) Carbon Dioxide Level 31 mmol/L (21-32) Anion Gap 5 (6-14) Blood Urea Nitrogen 14 mg/dL (8-26) Creatinine 0.7 mg/dL (0.7-1.3) Estimated GFR (Cockcroft-Gault) 111.8 Glucose Level 84 mg/dL (70-99) Calcium Level 8.9 mg/dL (8.5-10.1) Phosphorus Level 4.6 mg/dL (2.6-4.7) Total Bilirubin 0.5 mg/dL (0.2-1.0) Direct Bilirubin 0.2 mg/dL (0.0-0.2) Aspartate Amino Transf (AST/SGOT) 197 U/L (15-37) Alanine Aminotransferase (ALT/SGPT) 349 U/L (16-63) Alkaline Phosphatase 56 U/L (46-116) Creatine Kinase 77691 U/L (39-308) Total Protein 6.0 g/dL (6.4-8.2) Albumin 3.2 g/dL (3.4-5.0) Test 01/21/17 10:45 01/21/17 11:48 01/21/17 16:33 01/21/17 20:18 Glucose (Fingerstick) 89 mg/dL (70-99) 82 mg/dL (70-99) 83 mg/dL (70-99) Urine Collection Type Unknown Urine Color Yellow Urine Clarity Clear Urine pH 7.0 Urine Specific [place] <=1.005 Urine Protein Negative mg/dL (NEG-TRACE) Urine Glucose (UA) 100 mg/dL (NEG) Urine Ketones (Stick) Negative mg/dL (NEG) Urine Blood Small (NEG) Urine Nitrite Negative (NEG) Urine Bilirubin Negative (NEG) Urine Urobilinogen Dipstick 0.2 mg/dL (0.2 mg/dL) Urine Leukocyte Esterase Negative (NEG) Urine RBC 0 /HPF (0-2) Urine WBC 0 /HPF (0-4) Urine Squamous Epithelial Cells Occ /LPF Urine Bacteria 0 /HPF (0-FEW) Urine Mucus Slight /LPF Test 01/21/17 21:59 01/22/17 02:03 01/22/17 07:30 01/22/17 07:34 Glucose (Fingerstick) 237 mg/dL (70-99) 112 mg/dL (70-99) 89 mg/dL (70-99) Sodium Level 142 mmol/L (136-145) Potassium Level 3.7 mmol/L (3.5-5.1) Chloride Level 105 mmol/L (98-107) Carbon Dioxide Level 30 mmol/L (21-32) Anion Gap 7 (6-14) Blood Urea Nitrogen 15 mg/dL (8-26) Creatinine 0.6 mg/dL (0.7-1.3) Estimated GFR (Cockcroft-Gault) 133.6 Glucose Level 91 mg/dL (70-99) Calcium Level 9.3 mg/dL (8.5-10.1) Phosphorus Level 3.8 mg/dL (2.6-4.7) Creatine Kinase 8508 U/L (39-308) Albumin 3.3 g/dL (3.4-5.0) Test 01/22/17 10:54 Glucose (Fingerstick) 144 mg/dL (70-99) Laboratory Tests Test 01/21/17 16:33 01/21/17 20:18 01/21/17 21:59 01/22/17 02:03 Glucose (Fingerstick) 83 mg/dL (70-99) 237 mg/dL (70-99) 112 mg/dL (70-99) Urine Collection Type Unknown Urine Color Yellow Urine Clarity Clear Urine pH 7.0 Urine Specific [place] <=1.005 Urine Protein Negative mg/dL (NEG-TRACE) Urine Glucose (UA) 100 mg/dL (NEG) Urine Ketones (Stick) Negative mg/dL (NEG) Urine Blood Small (NEG) Urine Nitrite Negative (NEG) Urine Bilirubin Negative (NEG) Urine Urobilinogen Dipstick 0.2 mg/dL (0.2 mg/dL) Urine Leukocyte Esterase Negative (NEG) Urine RBC 0 /HPF (0-2) Urine WBC 0 /HPF (0-4) Urine Squamous Epithelial Cells Occ /LPF Urine Bacteria 0 /HPF (0-FEW) Urine Mucus Slight /LPF Test 01/22/17 07:30 01/22/17 07:34 01/22/17 10:54 Sodium Level 142 mmol/L (136-145) Potassium Level 3.7 mmol/L (3.5-5.1) Chloride Level 105 mmol/L (98-107) Carbon Dioxide Level 30 mmol/L (21-32) Anion Gap 7 (6-14) Blood Urea Nitrogen 15 mg/dL (8-26) Creatinine 0.6 mg/dL (0.7-1.3) Estimated GFR (Cockcroft-Gault) 133.6 Glucose Level 91 mg/dL (70-99) Calcium Level 9.3 mg/dL (8.5-10.1) Phosphorus Level 3.8 mg/dL (2.6-4.7) Creatine Kinase 8508 U/L (39-308) Albumin 3.3 g/dL (3.4-5.0) Glucose (Fingerstick) 89 mg/dL (70-99) 144 mg/dL (70-99) Assessment/Plan S/P right thigh muscle biopsy Surgery sign off Problems: NAHEED HERNÁNDEZ MD January 22, 2017 12:19
--- NOTE | 2017-01-22 12:42 | PDOC ---
G I PROGRESS NOTE Subjective Now on prednisone; believes this is helping. Physical Exam Lungs clear. RRR Abdomen soft, not distended nor tender. Review of Relevant I have reviewed the following items kathie (where applicable) has been applied. Labs Laboratory Tests Test 01/20/17 15:56 01/20/17 20:19 01/21/17 03:05 01/21/17 07:26 Glucose (Fingerstick) 88 mg/dL (70-99) 157 mg/dL (70-99) 95 mg/dL (70-99) Sodium Level 142 mmol/L (136-145) Potassium Level 3.9 mmol/L (3.5-5.1) Chloride Level 106 mmol/L (98-107) Carbon Dioxide Level 31 mmol/L (21-32) Anion Gap 5 (6-14) Blood Urea Nitrogen 14 mg/dL (8-26) Creatinine 0.7 mg/dL (0.7-1.3) Estimated GFR (Cockcroft-Gault) 111.8 Glucose Level 84 mg/dL (70-99) Calcium Level 8.9 mg/dL (8.5-10.1) Phosphorus Level 4.6 mg/dL (2.6-4.7) Total Bilirubin 0.5 mg/dL (0.2-1.0) Direct Bilirubin 0.2 mg/dL (0.0-0.2) Aspartate Amino Transf (AST/SGOT) 197 U/L (15-37) Alanine Aminotransferase (ALT/SGPT) 349 U/L (16-63) Alkaline Phosphatase 56 U/L (46-116) Creatine Kinase 59341 U/L (39-308) Total Protein 6.0 g/dL (6.4-8.2) Albumin 3.2 g/dL (3.4-5.0) Test 01/21/17 10:45 01/21/17 11:48 01/21/17 16:33 01/21/17 20:18 Glucose (Fingerstick) 89 mg/dL (70-99) 82 mg/dL (70-99) 83 mg/dL (70-99) Urine Collection Type Unknown Urine Color Yellow Urine Clarity Clear Urine pH 7.0 Urine Specific [place] <=1.005 Urine Protein Negative mg/dL (NEG-TRACE) Urine Glucose (UA) 100 mg/dL (NEG) Urine Ketones (Stick) Negative mg/dL (NEG) Urine Blood Small (NEG) Urine Nitrite Negative (NEG) Urine Bilirubin Negative (NEG) Urine Urobilinogen Dipstick 0.2 mg/dL (0.2 mg/dL) Urine Leukocyte Esterase Negative (NEG) Urine RBC 0 /HPF (0-2) Urine WBC 0 /HPF (0-4) Urine Squamous Epithelial Cells Occ /LPF Urine Bacteria 0 /HPF (0-FEW) Urine Mucus Slight /LPF Test 01/21/17 21:59 01/22/17 02:03 01/22/17 07:30 01/22/17 07:34 Glucose (Fingerstick) 237 mg/dL (70-99) 112 mg/dL (70-99) 89 mg/dL (70-99) Sodium Level 142 mmol/L (136-145) Potassium Level 3.7 mmol/L (3.5-5.1) Chloride Level 105 mmol/L (98-107) Carbon Dioxide Level 30 mmol/L (21-32) Anion Gap 7 (6-14) Blood Urea Nitrogen 15 mg/dL (8-26) Creatinine 0.6 mg/dL (0.7-1.3) Estimated GFR (Cockcroft-Gault) 133.6 Glucose Level 91 mg/dL (70-99) Calcium Level 9.3 mg/dL (8.5-10.1) Phosphorus Level 3.8 mg/dL (2.6-4.7) Creatine Kinase 8508 U/L (39-308) Albumin 3.3 g/dL (3.4-5.0) Test 01/22/17 10:54 Glucose (Fingerstick) 144 mg/dL (70-99) Laboratory Tests Test 01/21/17 16:33 01/21/17 20:18 01/21/17 21:59 01/22/17 02:03 Glucose (Fingerstick) 83 mg/dL (70-99) 237 mg/dL (70-99) 112 mg/dL (70-99) Urine Collection Type Unknown Urine Color Yellow Urine Clarity Clear Urine pH 7.0 Urine Specific [place] <=1.005 Urine Protein Negative mg/dL (NEG-TRACE) Urine Glucose (UA) 100 mg/dL (NEG) Urine Ketones (Stick) Negative mg/dL (NEG) Urine Blood Small (NEG) Urine Nitrite Negative (NEG) Urine Bilirubin Negative (NEG) Urine Urobilinogen Dipstick 0.2 mg/dL (0.2 mg/dL) Urine Leukocyte Esterase Negative (NEG) Urine RBC 0 /HPF (0-2) Urine WBC 0 /HPF (0-4) Urine Squamous Epithelial Cells Occ /LPF Urine Bacteria 0 /HPF (0-FEW) Urine Mucus Slight /LPF Test 01/22/17 07:30 01/22/17 07:34 01/22/17 10:54 Sodium Level 142 mmol/L (136-145) Potassium Level 3.7 mmol/L (3.5-5.1) Chloride Level 105 mmol/L (98-107) Carbon Dioxide Level 30 mmol/L (21-32) Anion Gap 7 (6-14) Blood Urea Nitrogen 15 mg/dL (8-26) Creatinine 0.6 mg/dL (0.7-1.3) Estimated GFR (Cockcroft-Gault) 133.6 Glucose Level 91 mg/dL (70-99) Calcium Level 9.3 mg/dL (8.5-10.1) Phosphorus Level 3.8 mg/dL (2.6-4.7) Creatine Kinase 8508 U/L (39-308) Albumin 3.3 g/dL (3.4-5.0) Glucose (Fingerstick) 89 mg/dL (70-99) 144 mg/dL (70-99) Medications Current Medications Ondansetron HCl (Zofran) 4 mg PRN Q6HRS PRN IV NAUSEA/VOMITING; Start 01/17/17 at 16:45 Al Hydroxide/Mg Hydroxide (Mylanta Plus Xs) 30 ml PRN Q3HRS PRN PO HEARTBURN / GAS; Start 01/17/17 at 16:45 Calcium Carbonate/ Glycine (Tums) 500 mg PRN Q3HRS PRN PO UPSET STOMACH; Start 01/17/17 at 16:45 Zolpidem Tartrate (Ambien) 5 mg PRN QHS PRN PO INSOMNIA, MAY REPEAT IN 1HR Last administered on 01/21/17t 22:52; Start 01/17/17 at 16:45 Oxycodone HCl (Roxicodone) 5 mg PRN Q3HRS PRN PO BREAKTHROUGH PAIN; Start at 16:45 Morphine Sulfate 1 mg PRN Q1HR PRN IV PAIN; Start 01/17/17 at 16:45 Ketorolac Tromethamine (Toradol) 15 mg PRN Q6HRS PRN IV PAIN; Start 01/17/17 at 16:45; Stop 01/22/17 at 16:44 Acetaminophen (Tylenol) 650 mg PRN Q6HRS PRN PO Headaches, Temp > 101.5F Last administered on 01/18/17 15:43; Start 01/17/17 at 16:45 Magnesium Hydroxide (Milk Of Magnesia) 2,400 mg PRN Q12HR PRN PO CONSTIPATION; Start 01/17/17 at 16:45 Bisacodyl (Dulcolax Supp) 10 mg PRN DAILY PRN IA CONSTIPATION; Start 01/17/17 at 16:45 Insulin Aspart (Novolog) 0-7 UNITS TIDWMEALS SQ ; Start 01/17/17 at 17:00 Dextrose (Dextrose 50%-Water Syringe) 12.5 gm PRN Q15MIN PRN IV SEE COMMENTS; Start 01/17/17 at 17:00 Ringer's Solution 1,000 ml @ 150 mls/hr Q6H40M IV Last administered on 05:21; Start 01/17/17 at 17:30 Pantoprazole Sodium (Protonix) 40 mg DAILYAC PO Last administered on 01/22/17 06:36; Start 01/19/17 at 07:30 Magnesium Sulfate/ Dextrose 50 ml @ 25 mls/hr 1X ONCE IV Last administered on 01/18/17 15:28; Start 01/18/17 at 14:30; Stop 01/18/17 at 16:29; Status DC Potassium Chloride (Klor-Con) 40 meq 1X ONCE PO Last administered on 01/18/17 15:27; Start 01/18/17 at 14:30; Stop 01/18/17 at 14:31; Status DC Propofol 20 ml @ As Directed STK-MED ONCE IV ; Start 01/21/17 at 09:29; Stop 01/21 at 09:30; Status DC Midazolam HCl (Versed) 2 mg STK-MED ONCE .ROUTE ; Start 01/21/17 at 09:30; Stop 01/21/17 at 09:31; Status DC Propofol 50 ml @ As Directed STK-MED ONCE IV ; Start 01/21/17 at 09:32; Stop 01/21 at 09:33; Status DC Cefazolin Sodium/ Dextrose 50 ml @ As Directed STK-MED ONCE IV ; Start 01/21/17 at 09:47; Stop 01/21/17 at 09:48; Status DC Bupivacaine HCl/ Epinephrine Bitart (Sensorcain-Mpf Epi 0.5%-1:[id number]) 30 ml STK -MED ONCE .ROUTE ; Start 01/21/17 at 09:51; Stop 01/21/17 at 09:52; Status DC Bupivacaine HCl/ Epinephrine Bitart (Sensorcaine-Epi 0.25%-1:135182 Mpf) 30 ml STK-MED ONCE .ROUTE Last administered on 01/21/17 10:50; Start 01/21/17 at 09:51 ; Stop 01/21/17 at 09:52; Status DC Prednisone (Prednisone) 30 mg DAILY PO Last administered on 01/22/17 08:21; Start 01/21/17 at 13:00 Insulin Aspart (Novolog) 2 units 1X ONCE SQ Last administered on 01/21/17 23: 47; Start 01/21/17 at 23:30; Stop 01/21/17 at 23:31; Status DC Active Scripts Active [place] 5-325 Tablet (Acetaminophen/Hydrocodone Bitart) 1 Each Tablet 1 Tab PO BID Prednisone 10 Mg Tablet 30 Mg PO DAILY 14 Days Vitals/I & O Vital Sign - Last 24 Hours 01/21/17 01/21/17 01/21/17 01/21/17 15:00 19:00 20:00 23:00 Temp 98.2 98.6 98.3 98.2 98.6 98.3 Pulse 76 79 80 Resp 16 20 20 B/P (MAP) 138/54 (82) 144/72 (96) 136/77 (96) Pulse Ox 95 97 94 O2 Delivery Room Air Room Air Room Air Room Air 01/22/17 01/22/17 01/22/17 07:00 08:00 11:09 Temp 97.8 97.8 97.8 97.8 Pulse 72 70 Resp 18 18 B/P (MAP) 137/73 (94) 151/85 (107) Pulse Ox 98 97 O2 Delivery Room Air Room Air Room Air O2 Flow Rate 10.0 Intake and Output 01/21/17 01/21/17 01/22/17 15:00 23:00 07:00 Intake Total 750 ml 700 ml 1300 ml Output Total 0 ml 2300 ml 1425 ml Balance 750 ml -1600 ml -125 ml Assessment Polymyositis? Muscle biopsy pending. Clinical response to empiric steroids. Plan of Care: Continue current Tx, Mgmt Plan of Care Note Await biopsy. ARNALDO VIDES MD January 22, 2017 12:42
--- NOTE | 2017-01-23 02:18 | DS ---
DATE OF DISCHARGE: 01/22/2017 DISCHARGE DIAGNOSES: 1. 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 Muscle biopsies were pending. 2. Diabetes mellitus, well controlled. 3. Hyperlipidemia. 4. Gastroesophageal reflux disease. 5. Elevated liver enzymes likely due to muscle injury. 6. Subclinical hypothyroidism, needs repeat check. BRIEF HOSPITAL COURSE: This 71-year-old male patient admitted to the hospital for acute on chronic muscle weakness. He had elevated CPK around 12,000 and also his myoglobin has been increased and the patient was started on aggressive IV hydration and during hospitalization, he was followed up by Gastroenterology for elevated liver enzymes, also for Rheumatology, Dr. Gutierrez followed heme and he recommended to have prednisone 30 mg daily and see him in the clinic in next 2 weeks. Clinically, patient's symptoms improved and also creatinine has been improving; however, muscle biopsy is still pending. 2. The patient has been advised to stop the statins or any [id number] medications and keep hydrate himself. He has been provided Rheumatology phone number. He needs to see him for followup and muscle biopsy results. DISCHARGE EXAMINATION: GENERAL: Alert, oriented x 3. HEART: S1, S2 present. LUNGS: Clear. ABDOMEN: Soft, nontender, no organomegaly. EXTREMITIES: No edema. DISCHARGE DISPOSITION: Home. DISCHARGE CONDITION: Stable. DISCHARGE MEDICATIONS: Prednisone 30 mg p.o. daily. FOLLOWUP: With Dr. Gutierrez, Rheumatology in 2 weeks. Total time spent for discharge is 32 minutes for patient education, counseling, and coordination of care. NATI HOU MD DR: ISAÍAS/renae JOB#: [id number] / [id number] MONTSE
== END 2017-01-22 13:57 | disposition home or self-care (01) | DRG 501 ==
LOC: 5 SOUTH 13:42
PROVIDERS: ADMIT Internal Medicine; ATTEND Internal Medicine
PROC: 0KBQ0ZX Excision of Right Upper Leg Muscle, Open Approach, Diagnostic (ICD-10-PCS; principal; 2017-01-21 10:00)
DX: M62.82 Rhabdomyolysis (principal); M33.20 Polymyositis, organ involvement unspecified; G72.41 Inclusion body myositis [IBM]; K21.9 Gastro-esophageal reflux disease without esophagitis; E11.9 Type 2 diabetes mellitus without complications; E03.9 Hypothyroidism, unspecified; E78.5 Hyperlipidemia, unspecified; E87.8 Other disorders of electrolyte and fluid balance, not elsewhere classified; G89.29 Other chronic pain; G47.33 Obstructive sleep apnea (adult) (pediatric); N40.0 Benign prostatic hyperplasia without lower urinary tract symptoms; M19.90 Unspecified osteoarthritis, unspecified site
CPT/HCPCS: 36415; 80053; 80069; 80076; 81001; 82085; 82550; 82947; 83735; 83874; 84100; 84439; 84443; 85027; 85610; 85651; 87641; G0481; J0690; J1815; J2250; J2704; J3490; J7060; J7120; J7512